=== PATIENT | male | born 1950 | race Caucasian/White ===

== ENCOUNTER 2016-11-08 18:55 | Emergency (ER) | payer OTHER ==
[2016-11-08 19:11] VITALS: BMI 30.9
--- NOTE | 2016-11-08 19:49 | PDOC ---
History of Present Illness - General History Source: Patient Exam Limitations: No Limitations - History of Present Illness Initial Comments: 11/08/16 21:13 The patient is a 66 year old male with past medical history of end stage renal cancer (on dialysis MW) who presents to the ED with complaints of elevated blood pressure since this morning. The patient states he did not record his blood pressure, however he felt lightheaded all day and also experienced two episodes of nausea and vomiting. In the ED, the patient states his symptoms have subsided but his pressure was recorded at 172/91. His last dialysis treatment was yesterday in which he reported was normal. He also notes that he was recently diagnosed with shingles in which he is being treated for. He denies any recent illness, fever, chills, diarrhea, cough, shortness of breath, chest pain, or urinary symptoms. <Tish Campos - Last Filed: 11/08/16 22:09> <Stanislav Stokes - Last Filed: 11/08/16 22:51> - General Chief Complaint: Blood Pressure Problem Stated Complaint: HIGH BP /VOMITING/DISORIENTED Past History <Tish Campos - Last Filed: 11/08/16 22:09> - Past Medical History Dialysis: Yes (M-W-F) Disorders: (dialysis) HTN: Yes - Immunization History Immunization Up to Date: Yes - Psycho/Social/Smoking Cessation Hx Suicidal Ideation: No Smoking History: Never smoked Hx Alcohol Use: No Drug/Substance Use Hx: No Substance Use Type: None <Stanislav Stokes - Last Filed: 11/08/16 22:51> - Past Medical History Allergies/Adverse Reactions: Allergies Allergy/AdvReac Type Severity Reaction Status Date / Time morphine Allergy Unknown Verified 11/08/16 19:11 Home Medications: Ambulatory Orders Abacavir Sulfate [Abacavir] 300 mg PO DAILY 11/08/16 Cinacalcet HCl [Sensipar -] 30 mg PO DAILY 11/08/16 Hydrochlorothiazide [Hctz -] 25 mg PO DAILY #30 tablet 11/08/16 Oxycodone HCl [Roxicodone -] 5 mg PO Q6H 11/08/16 Raltegravir [Isentress -] 400 mg PO BID 11/08/16 Valacyclovir HCl [Valtrex -] 1,000 mg PO TID 11/08/16 Zolpidem Tartrate [Ambien] 10 mg PO HS PRN 11/08/16 Review of Systems - Review of Systems Able to Perform ROS?: Yes Comments:: 11/08/16 21:14 GENERAL/CONSTITUTIONAL: No fever or chills. No weakness. HEAD, EYES, EARS, NOSE AND THROAT: No change in vision. No ear pain or discharge. No sore throat. CARDIOVASCULAR: No chest pain or shortness of breath. RESPIRATORY: No cough, wheezing, or hemoptysis. GASTROINTESTINAL: Present: nausea, vomiting No diarrhea or constipation. GENITOURINARY: No dysuria, frequency, or change in urination. MUSCULOSKELETAL: No joint or muscle swelling or pain. No neck or back pain. SKIN: No rash NEUROLOGIC: Present: dizziness No headache, loss of consciousness, or change in strength/sensation. ENDOCRINE: No increased thirst. No abnormal weight change. HEMATOLOGIC/LYMPHATIC: No anemia, easy bleeding, or history of blood clots. ALLERGIC/IMMUNOLOGIC: No hives or skin allergy. All Other Systems: Reviewed and Negative <Tish Campos - Last Filed: 11/08/16 22:09> *Physical Exam - Vital Signs Last Vital Signs Temp Pulse Resp BP Pulse Ox 98.2 F 94 H 20 172/91 98 11/08/16 19:09 11/08/16 19:09 11/08/16 19:09 11/08/16 19:09 11/08/16 19:09 - Physical Exam Comments: 11/08/16 21:15 GENERAL: Awake, alert, and fully oriented, in no acute distress, obese HEAD: No signs of trauma EYES: PERRLA, EOMI, sclera anicteric, conjunctiva clear ENT: Auricles normal inspection, hearing grossly normal, nares patent, oropharynx clear without exudates. Moist mucosa NECK: Normal ROM, supple, no lymphadenopathy, JVD, or masses LUNGS: Breath sounds equal, clear to auscultation bilaterally. No wheezes, and no crackles HEART: Systolic murmur with diffuse radiation. Normal S1 and S2, no murmurs, rubs or gallops ABDOMEN: Umbilical hernia that is reproducible on palpation. Soft, nontender, normoactive bowel sounds. No guarding, no rebound. EXTREMITIES: Fistula placed in left arm that is patent with palpable bruits. Normal range of motion, no edema. No clubbing or cyanosis. No cords, erythema, or tenderness NEUROLOGICAL: Cranial nerves II through XII grossly intact. Normal speech, normal gait SKIN: Warm, Dry, normal turgor, no rashes or lesions noted. <Tish Campos - Last Filed: 11/08/16 22:09> - Vital Signs Last Vital Signs Temp Pulse Resp BP Pulse Ox 98.2 F 94 H 20 172/91 98 11/08/16 19:09 11/08/16 19:09 11/08/16 19:09 11/08/16 19:09 11/08/16 19:09 <Stanislav Stokes - Last Filed: 11/08/16 22:51> Heart Score/ECG Review - ECG Intrepretation Comment:: 11/08/16 21:46 ECG obtained at 19:30 Normal sinus at 93 bpm. Q waves in V3 <Tish Campos - Last Filed: 11/08/16 22:09> ED Treatment Course - LABORATORY CBC & Chemistry Diagram: 11/08/16 21:07 11/08/16 21:07 - RADIOLOGY Radiology Studies Ordered: 11/08/16 22:[address] as reviewed by Dr. Bean FINDINGS:Serial transaxial images of the brain are available without intravenous contrast agent demonstrating generalized mild cortical atrophy. There is no midline shift or mass-effect or acute hemorrhage. No abnormal fluid collections are seen. The ventricular system is normal. Visible portions of the mastoid air cells are well-aerated. The calvarium appears intact. Visible portions of the paranasal sinuses are well-aerated. IMPRESSION: Findings of chronic parenchymal changes of the brain <Tish Campos - Last Filed: 11/08/16 22:09> - LABORATORY CBC & Chemistry Diagram: 11/08/16 21:07 11/08/16 21:07 <Stanislav Stokes - Last Filed: 11/08/16 22:51> Medical Decision Making - Medical Decision Making 11/08/16 21:57 This is a 66yo m with ESRD on HD with full session yesterday who presents with headache, n/v and significantly elevated BP. He has no chest pain, palpitations , SOB and no light headedness; he reports no other symptoms. He has h/o hyperlipidemia, hypertension and says his BP typically "goes down when (he) has dialysis. Will give antihypertensive as he is not taking any; will obtain CT head and cardiac ecvaluation; EKG is reassuring. He will likely be discharged pending any positive findings with instruction for close follow up. 11/08/16 22:14 All diagnostics are negative; he is having no current symptoms and CT head is negative; I have encouraged the patient to follow up with the PMD within the next 24 hours and return if there is any change in symptoms; as well, I have started him on HCTZ 25mg PO. 11/08/16 22:25 <Stanislav Stokes - Last Filed: 11/08/16 22:51> *DC/Admit/Observation/Transfer - Attestations Scribe Attestion: 11/08/16 21:43 Documentation prepared by Tish Campos, acting as director medical affairs for Stanislav Stokes MD. <Tish Campos - Last Filed: 11/08/16 22:09> - Discharge Dispostion Admit: No Decision to Admit order Date/Time: 11/08/16 22:00 - Attestations Physician Attestion: 11/08/16 22:14 I, Dr. Stanislav Stokes MD, attest that this document has been prepared under my direction and personally reviewed by me in its entirety. I further attest, that it accurately reflects all work, treatment, procedures and medical decision -making performed by me. <Stanislav Stokes - Last Filed: 11/08/16 22:51> Diagnosis at time of Disposition: End stage renal disease on dialysis Hypertension Qualifiers: Hypertension type: secondary to other renal disorders Qualified Code(s): I15.1 - Hypertension secondary to other renal disorders Headache Qualifiers: Headache type: other headache syndrome Qualified Code(s): G44.89 - Other headache syndrome Nausea & vomiting Qualifiers: Vomiting type: unspecified Vomiting Intractability: non-intractable Qualified Code(s): R11.2 - Nausea with vomiting, unspecified - Discharge Dispostion Disposition: HOME Condition at time of disposition: Good - Prescriptions Prescriptions: Hydrochlorothiazide [Hctz -] 25 mg PO DAILY #30 tablet - Patient Instructions Additional Instructions: As discussed, your Blood pressure should be monitored as much as possible with a home BP kit, which can be purchased at any pharmacy. If there is any change in your symptoms, or if you have any return of your headache, if you have any chest pain, please return immediately to the ED. Please follow up with your PMD within the next 48 hours otherwise.
[2016-11-08] MEDS ORDERED: LABETALOL HCL 200 MG TABLET (FP) PO ONE (20:54)
[2016-11-08] MEDS ORDERED: ASPIRIN 81 MG CHEWABLE TABLETS PO ONE (20:55)
[2016-11-08] MEDS ORDERED: ASPIRIN 81 MG CHEWABLE TABLETS ONE (21:05)
[2016-11-08] MEDS ORDERED: LABETALOL HCL 100 MG TABLET (FP) ONE (21:06)
[2016-11-08 21:15] LABS: BASOPHIL 0.9 % (0-2.0); EOSINOPHIL 4.8 % (0-4.5); MCH 30.1 pg (25.7-33.7); MCHC 33.2 g/dl (32.0-35.9); MEAN CELL VOLUME 90.6 fl (80-96); MEAN PLT VOLUME 7.2 fl (7.5-11.1); PLATELET COUNT 158 K/MM3 (134-434); RDW 14.3 % (11.9-15.9); WHITE BLOOD COUNT 6.7 K/mm3 (4.0-10.0)
[2016-11-08 21:25] LABS: INR 1.05 (0.82-1.09); PROTHROMBIN TIME (PATIENT) 11.6 SEC (9.98-11.88)
[2016-11-08 21:40] LABS: ALBUMIN 4.4 g/dl (3.4-5.0); BILIRUBIN,TOTAL 0.5 mg/dL (0.2-1.0); CALCIUM 9.5 mg/dL (8.5-10.1); MAGNESIUM 2.7 mg/dL (1.8-2.4); TOT PROT 7.7 g/dl (6.4-8.2)
[2016-11-08 21:46] LABS: TROPONIN I 0.02 ng/ml (0.00-0.05)
[2016-11-08 21:50] LABS: CREATININE 8.9 mg/dL (0.7-1.3)
[2016-11-08] MEDS ORDERED: ALPRAZolam 0.25 MG TABLET PO ONE (22:24)
[2016-11-08] MEDS ORDERED: ALPRAZolam 0.25 MG TABLET ONE (22:32)
[2016-11-08 22:39] VITALS: BP 143/89; PULSE 85; TEMP 98.1
--- NOTE | 2016-11-09 22:30 | EKG ---
Test Reason : Blood Pressure : / mmHG Vent. Rate : 093 BPM Atrial Rate : 093 BPM P-R Int : 206 ms QRS Dur : 100 ms QT Int : 384 ms P-R-T Axes : 023 -01 066 degrees QTc Int : 477 ms NORMAL SINUS RHYTHM MINIMAL VOLTAGE CRITERIA FOR LVH, MAY BE NORMAL VARIANT CANNOT RULE OUT INFERIOR INFARCT , AGE UNDETERMINED CANNOT RULE OUT ANTERIOR INFARCT , AGE UNDETERMINED ABNORMAL ECG WHEN COMPARED WITH ECG OF 02-JUN-2016 01:06, PREMATURE VENTRICULAR COMPLEXES ARE NO LONGER PRESENT MINIMAL CRITERIA FOR INFERIOR INFARCT ARE NOW PRESENT Confirmed by KRISTIE HORNER MD ([id number]) on 11/09/2016 10:30:22 PM Referred By: Confirmed By:KRISTIE HORNER MD
== END 2016-11-08 22:39 | disposition home or self-care (01) ==
LOC: JER 18:55
DX: I10 Essential (primary) hypertension (principal); I12.0 Hypertensive chronic kidney disease with stage 5 chronic kidney disease or end stage renal disease; N17.8 Other acute kidney failure; Z99.2 Dependence on renal dialysis
CPT/HCPCS: 36415; 70450-TC; 71010-TC; 80053; 82550; 83690; 83735; 83880; 84100; 84484; 85025; 85610; 86850; 86900; 86901; 93005; 93010; 99281-25

== ENCOUNTER 2016-11-09 22:05 | Emergency (ER) | payer OTHER ==
[2016-11-09 22:14] VITALS: TEMP 97.7; BMI 29.9
[2016-11-09] MEDS ORDERED: NITROGLYCERIN SUBLINGUAL 1/150 0.4 MG TAB SL ONE (22:35)
[2016-11-09] MEDS ORDERED: ONDANSETRON 4 MG/2 ML VIAL IVPUSH ONE (22:36)
--- NOTE | 2016-11-09 22:37 | PDOC ---
History of Present Illness - History of Present Illness Initial Comments: 11/09/16 22:44 Patient is a 66 year old male with significant medical hx of ESRD (on dialysis) and HTN who is presenting to the ED with intermittent confusion since today. Patient is accompanied by girlfriend who accompanied history. She states that today the patient has been having intermittent episodes of confusion where he didnt recognize her or his family. The patient reportedly had moments where he was not acting himself and speaking like a child. She also states that the patient was touching his head often but didn't declare a headache. Upon second interview, the girlfriend endorses that the patient "accidentally took half of a klonopin" of her's from several hours ago. Denies fever, chills, nausea, vomiting, head injury, LOC, or weakness. Patient was seen in the ED yesterday for elevated blood pressure, lightheadedness, nausea and vomiting. <Myrtle Bryson - Last Filed: 11/09/16 23:04> <Stanislav Stokes - Last Filed: 11/10/16 02:24> - General Chief Complaint: Altered Mental Status Stated Complaint: CONFUSED/POSS STROKE Past History <Myrtle Bryson - Last Filed: 11/09/16 23:04> - Past Medical History Dialysis: Yes (M-W-F) Disorders: (dialysis) HTN: Yes - Immunization History Immunization Up to Date: Yes - Psycho/Social/Smoking Cessation Hx Suicidal Ideation: No Smoking History: Current every day smoker Have you smoked in the past 12 months: No Number of Cigarettes Smoked Daily: 0 Information on smoking cessation initiated: No Hx Alcohol Use: No Drug/Substance Use Hx: No Substance Use Type: None <Stanislav Stokes - Last Filed: 11/10/16 02:24> - Past Medical History Allergies/Adverse Reactions: Allergies Allergy/AdvReac Type Severity Reaction Status Date / Time morphine Allergy Unknown Verified 11/09/16 22:10 Home Medications: Ambulatory Orders Abacavir Sulfate [Abacavir] 300 mg PO DAILY 11/08/16 Cinacalcet HCl [Sensipar -] 30 mg PO DAILY 11/08/16 Hydrochlorothiazide [Hctz -] 25 mg PO DAILY #30 tablet 11/08/16 Oxycodone HCl [Roxicodone -] 5 mg PO Q6H 11/08/16 Raltegravir [Isentress -] 400 mg PO BID 11/08/16 Valacyclovir HCl [Valtrex -] 1,000 mg PO TID 11/08/16 Zolpidem Tartrate [Ambien] 10 mg PO HS PRN 11/08/16 Review of Systems - Review of Systems Comments:: 11/09/16 22:47 GENERAL/CONSTITUTIONAL: No fever or chills. No weakness. HEAD, EYES, EARS, NOSE AND THROAT: No change in vision. No ear pain or discharge. No sore throat. CARDIOVASCULAR: No chest pain or shortness of breath. RESPIRATORY: No cough, wheezing, or hemoptysis. GASTROINTESTINAL: No nausea, vomiting, diarrhea or constipation. GENITOURINARY: No dysuria, frequency, or change in urination. MUSCULOSKELETAL: No joint or muscle swelling or pain. No neck or back pain. SKIN: No rash NEUROLOGIC: Confusion. No headache, vertigo, loss of consciousness, or change in strength/sensation. <Myrtle Bryson - Last Filed: 11/09/16 23:04> *Physical Exam - Vital Signs Last Vital Signs Temp Pulse Resp BP Pulse Ox 97.7 F 96 H 14 182/113 98 11/09/16 22:11 11/09/16 22:11 11/09/16 22:11 11/09/16 22:11 11/09/16 22:11 - Physical Exam Comments: 11/09/16 22:48 GENERAL: Patient is agitated. Awake, alert, and fully oriented. HEAD: No signs of trauma EYES: PERRLA, EOMI, sclera anicteric, conjunctiva clear ENT: Auricles normal inspection, hearing grossly normal, nares patent, oropharynx clear without exudates. Moist mucosa NECK: Normal ROM, supple, no lymphadenopathy, JVD, or masses LUNGS: Breath sounds equal, clear to auscultation bilaterally. No wheezes, and no crackles HEART: Regular rate and rhythm, normal S1 and S2, no murmurs, rubs or gallops ABDOMEN: Soft, nontender, normoactive bowel sounds. No guarding, no rebound. No masses EXTREMITIES: Normal range of motion, no edema. No clubbing or cyanosis. No cords, erythema, or tenderness NEUROLOGICAL: Speaking full sentences, not confused. Answering questions appropriately. Cranial nerves II through XII grossly intact. Normal speech, normal gait SKIN: Warm, Dry, normal turgor, no rashes or lesions noted. ENDOCRINE: No increased thirst. No abnormal weight change. HEMATOLOGIC/LYMPHATIC: No anemia, easy bleeding, or history of blood clots. ALLERGIC/IMMUNOLOGIC: No hives or skin allergy. <Myrtle Bryson - Last Filed: 11/09/16 23:04> - Vital Signs Last Vital Signs Temp Pulse Resp BP Pulse Ox 97.7 F 96 H 14 182/113 98 11/09/16 22:11 11/09/16 22:11 11/09/16 22:11 11/09/16 22:11 11/09/16 22:11 <Stanislav Stokes - Last Filed: 11/10/16 02:24> ED Treatment Course - LABORATORY CBC & Chemistry Diagram: 11/09/16 22:55 11/09/16 22:55 - RADIOLOGY Radiograph Interpretation: 11/09/16 23:04 Pond Scaler: ([email or web address]) Report Date: 11/09/2016 23:03:00 Report Status: Preliminary Begin of Report Content Referring Physician: Patient Name: Kody Vasquez THIS IS A PRELIMINARY REPORT FROM [facility] EXAM: CT brain without contrast IMAGES: 76 EXAM DATE AND TIME: 2016-11-09 22:41:31.0 REASON FOR EXAM: Confused COMPARISON: CT brain November 08, 2016 FINDINGS: Involutional changes. No hemorrhage. No mass. No visible acute infarct. Osseous structures are intact. THIS DOCUMENT HAS BEEN ELECTRONICALLY SIGNED Bismark Celaya MD 11/09/2016 23:02 AMITA George Please call [facility] [phone] ([phone]) with questions. End of Report Content - Medications Given in the ED: ED Medications Discontinued Medications Generic Name Dose Route Start Last Admin Trade Name Freq PRN Reason Stop Dose Admin Nitroglycerin 0.4 mg 11/09/16 22:35 11/09/16 22:39 Nitrostat - SL 11/09/16 22:36 0.4 mg ONCE ONE Administration <Myrtle Bryson - Last Filed: 11/09/16 23:04> - LABORATORY CBC & Chemistry Diagram: 11/09/16 22:55 11/09/16 22:55 <[place] - Last Filed: 11/10/16 02:24> Medical Decision Making - Medical Decision Making 11/10/16 01:01 This is a 66yo m with ESRD on HD who presents for the second time within 24 hours and today, the girlfriend reports continued hypertension through the day and intermittent confusion which prompted her to call 911 this evening. The patient is sensical and answers questions appropriately without any evidence of focal neurologic deficits. He is given nitro SL for BP concern which has helped bring the BP down to reasonable level. He denies any chest pain but did have one episode of nausea without vomiting. His PE demonstrates only mild diffuse tremulousness and weakness. EKG is reassuring and without ischemia; no significant change from the previous yesterday. He was asymptomatic with BP controlled yesterday and was able to be discharged safely. He did not take the HCTZ which was prescribed and in fact "accidentally" took the girlfriend's 1mg PO klonazepam, which is likely contributing to his mild intermittent confusion/ grogginess. 11/10/16 01:06 His labs show only creatinine consistent with his ESRD/HD history and elevated BNP; his chest exam is unremarkable and he has no difficulty breathing. His CT head is negative as well. He will be endorsed to the hospitalist after UA is obtained; will endorse for telemetry admission for intermittent confusion and blood pressure monitoring; he also has never been given antihypertensives and should be evaluated for this. 11/10/16 01:59 The patient's girlfriend and I, as well as the nursing staff, have all tried to make the patient. He is answering questions appropriately, shows no focal neurologic deficits. He seems to not be concerned regarding the significant elevation of the blood pressure, and says he is not confused. Objectively, there is no suggestion of confusion. He is given information regarding treatment options, alternatives, and I have answered all questions of the patient and his girlfriend. He insists he will sign AMA at this time and will have follow up with dialysis tomorrow and will call 911 if there are any changes in his symptoms. I have strongly encouraged the patient to return if he reconsiders <Stanislav Stokes - Last Filed: 11/10/16 02:24> *DC/Admit/Observation/Transfer - Attestations Scribe Attestion: 11/09/16 22:49 Documentation prepared by Myrtle Bryson, acting as bilingual medical receptionist for Stanislav Stokes MD. <Myrtle Bryson - Last Filed: 11/09/16 23:04> - Discharge Dispostion Decision to Admit order Date/Time: 11/10/16 02:22 - Attestations Physician Attestion: 11/10/16 02:22 I, Dr. Stanislav Stokes MD, attest that this document has been prepared under my direction and personally reviewed by me in its entirety. I further attest, that it accurately reflects all work, treatment, procedures and medical decision -making performed by me. <Stanislav Stokes - Last Filed: 11/10/16 02:24> Diagnosis at time of Disposition: Confusion Hypertension Qualifiers: Hypertension type: unspecified secondary hypertension Qualified Code(s): I15.9 - Secondary hypertension, unspecified; I15 - Secondary hypertension - Discharge Dispostion Disposition: AGAINST MEDICAL ADVICE Condition at time of disposition: Guarded - Patient Instructions Additional Instructions: Please follow up with your PMD within the next 12 hours and if there is any change otherwise in your symptoms, please return immediately to the ED. You are signing out of the hospital against medical advice and if you reconsider your decision, please return immediately.
[2016-11-09] MEDS ORDERED: NICARDIPINE 25 MG in DEXTROSE 5%-WATER - 240 ML IVPB SCH (22:45)
[2016-11-09] MEDS ORDERED: ONDANSETRON 4 MG/2 ML VIAL ONE (23:03)
[2016-11-09 23:04] LABS: BASOPHIL 1.4 % (0-2.0); EOSINOPHIL 7.4 % (0-4.5); MCH 30.4 pg (25.7-33.7); MEAN CELL VOLUME 89.6 fl (80-96); MEAN PLT VOLUME 6.9 fl (7.5-11.1); NEUTROPHILS 65.9 % (42.8-82.8); PLATELET COUNT 161 K/MM3 (134-434); RDW 14.4 % (11.9-15.9); WHITE BLOOD COUNT 6.3 K/mm3 (4.0-10.0)
[2016-11-09 23:15] LABS: INR 1.06 (0.82-1.09); PROTHROMBIN TIME (PATIENT) 11.7 SEC (9.98-11.88)
[2016-11-09 23:37] LABS: ALBUMIN 4.4 g/dl (3.4-5.0); BILIRUBIN,TOTAL 0.6 mg/dL (0.2-1.0); CALCIUM 8.6 mg/dL (8.5-10.1); MAGNESIUM 2.7 mg/dL (1.8-2.4); PHOSPHOROUS 6.2 mg/dL (2.5-4.9); TOT PROT 7.5 g/dl (6.4-8.2)
[2016-11-09 23:43] LABS: TROPONIN I 0.02 ng/ml (0.00-0.05)
[2016-11-09 23:46] LABS: CREATININE 10.6 mg/dL (0.7-1.3)
[2016-11-10 00:31] LABS: CHOLESTEROL 169 mg/dL (50-200); LDL CHOLESTEROL (ONLY SJRH) 97 mg/dL (5-100)
[2016-11-10 02:18] VITALS: BP 141/79; PULSE 73
--- NOTE | 2016-11-10 12:37 | EKG ---
Test Reason : Blood Pressure : / mmHG Vent. Rate : 092 BPM Atrial Rate : 092 BPM P-R Int : 206 ms QRS Dur : 086 ms QT Int : 398 ms P-R-T Axes : 043 015 073 degrees QTc Int : 492 ms NORMAL SINUS RHYTHM CANNOT RULE OUT ANTERIOR INFARCT (CITED ON OR BEFORE 08-NOV-2016) ABNORMAL ECG WHEN COMPARED WITH ECG OF 08-NOV-2016 19:30, NO SIGNIFICANT CHANGE WAS FOUND Confirmed by LAINE FERNANDEZ, MICHAEL ([id number]) on 11/10/2016 12:36:47 PM Referred By: Confirmed By:MICHAEL JANG MD
== END 2016-11-10 02:30 | disposition left against medical advice (07) ==
LOC: JER 22:05
PROC: 3E033GC Introduction of Other Therapeutic Substance into Peripheral Vein, Percutaneous Approach (ICD-10-PCS; principal; 2016-11-09)
DX: R41.0 Disorientation, unspecified (principal); I12.0 Hypertensive chronic kidney disease with stage 5 chronic kidney disease or end stage renal disease; N18.6 End stage renal disease; N17.8 Other acute kidney failure; Z99.2 Dependence on renal dialysis
CPT/HCPCS: 36415; 70450-TC; 71010-TC; 80053; 80061; 82550; 83605; 83690; 83721; 83735; 83880; 84100; 84484; 85025; 85610; 86850; 86900; 86901; 87040; 93005; 93010; 99282-25

== ENCOUNTER 2019-07-04 07:01 | Day surgery (SDC) | payer OTHER ==
[2019-07-01 16:17] VITALS: BMI 25.1
[2019-07-04] MEDS ORDERED: HEPARIN NA (PORCINE) 5,000 UNITS/ML 1ML VIAL ONE ×2 (07:15→07:26)
[2019-07-04] MEDS ORDERED: LIDOCAINE HCL 1%, 10 MG/ML (20ML VIAL) ONE ×2 (07:15→09:12)
[2019-07-04] MEDS ORDERED: POVIDONE-IODINE OINTMENT 10% - 28.4 GM TUBE ONE (07:15)
--- NOTE | 2019-07-04 08:00 | HP ---
History & Physical Update - History History: No Change - Physical Physical: No Change - Assessment Assessment: No Change - Plan Plan: No Change
[2019-07-04] MEDS ORDERED: PROPOFOL 20 ML ONE ×4 (08:47→09:01)
[2019-07-04] MEDS ORDERED: MIDAZOLAM HCL 2 MG/2 ML SINGLE DOSE VIAL ONE (08:47)
[2019-07-04] MEDS ORDERED: ceFAZolin 2 GRAM PREMIX BAG IVPB ONE (09:05)
[2019-07-04] MEDS ORDERED: LIDOCAINE HCL 1%, 10 MG/ML (50 mL VIAL) NR ONE ×2 (09:10)
--- NOTE | 2019-07-04 10:37 | OP ---
Operative Note - Note: Operative Date: 07/04/19 Pre-Operative Diagnosis: ESRD on HD Operation: Placement AV graft right arm Findings: Small axillary vein Implants: 4-7 mm Propaten graft Post-Operative Diagnosis: Same as Pre-op Surgeon: Roddy Stanley Design Engineer Marine Equipment: Niharika Gay Anesthesiologist/FOREIGN STUDENT ADVISER: Derrick Giang Estimated Blood Loss (mls): 50
[2019-07-04] MEDS ORDERED: oxyCODONE HCL 5 MG TABLET PO PRN (11:02)
--- NOTE | 2019-07-04 11:02 | SURG ---
Surgery Python Web Developer Note Python Web Developer: Niharika Gay PA-C Date of Service: 07/04/19 Diagnosis: ESRD on HD Procedure: Placement AV graft right arm I was present for the entirety of the operative procedure. For further detail, please refer to operative report. Visit type - Case Type Case Type: Scheduled - Emergency Emergency Visit: No - New patient This patient is new to me today: Yes Date on this admission: 07/04/19
[2019-07-04] MEDS ORDERED: SODIUM CHLORIDE 1,000 ML IV SCH (11:15)
[2019-07-04 13:19] VITALS: BP 130/68; PULSE 70; TEMP 97.8
--- NOTE | 2019-07-08 10:56 | OP ---
DATE OF OPERATION: 07/04/2019 SURGEON: Roddy Hays MD ASSOCIATE TRAINER: LANNY Garrido PROCEDURE: Placement arteriovenous graft, right arm. PREOPERATIVE DIAGNOSIS: Renal failure. POSTOPERATIVE DIAGNOSIS: Renal failure. ANESTHESIA: Fractional. ANESTHESIOLOGIST: Derrick Giang MD OPERATIVE FINDINGS: The brachial artery was normal diameter with good flow. The axillary vein was small diameter of approximately 5 mm. OPERATIVE PROCEDURE: Following routine patient identification with site and side verification, intravenous sedation was established. The right arm, axilla, and chest wall were prepped with ChloraPrep. Time-out was performed, 1% lidocaine was infiltrated in the right axilla over the axillary vein, which had been mapped preoperatively with duplex imaging. The vein was exposed through a longitudinal incision using cautery for hemostasis. The vein was encircled with Vessel Loops. Side branches were ligated and divided. Lidocaine was infiltrated over the brachial pulse proximal to the antecubital crease and a skin incision made over the artery. The artery was exposed using cautery for hemostasis. It was secured with Vessel Loops. Side branches were ligated and divided. A curved metal tunneler was then passed over the anterior aspect of the arm between the 2 incisions. A 4/7-mm Propaten vascular graft was passed through the tunneler with the small end distally. The artery was occluded with Vessel Loops and opened on exposed surface with a 6-mm arteriotomy. The small end of the graft was beveled and anastomosed to the side of the artery with running suture of 6-0 Prolene. Prior to completion of the suture line, the artery was allowed to back bleed and flush. Suture line was completed, and the graft was occluded with a vascular clamp. Flow was restarted to the brachial artery. Bleeding from suture line was controlled with Surgicel. The vein was then occluded proximally with a small Bulldog clamp and distally with Vessel Loop. A longitudinal venotomy measuring approximately 15 mm was made. The vein was flushed with heparin solution. The graft was beveled and anastomosed to the side of the vein with running suture of 6-0 Prolene. Prior to completed of the suture line, the vein was allowed to back bleed and was flushed with heparin, and the graft was allowed to flush. Suture line was completed. All clamps were removed. There was good flow through the graft with a palpable pulse present. When hemostasis was adequate, the wounds were closed with interrupted suture of 3-0 Vicryl in subcutaneous tissues and skin elizabeth. Sterile dressings were applied, and the patient was taken to the recovery room in stable condition. RODDY HAYS M.D. [id number]
== END 2019-07-04 12:30 | disposition home or self-care (01) ==
LOC: JASU-SURG 07:01
PROVIDERS: ATTEND Surgery
PROC: 03170JD Bypass Right Brachial Artery to Upper Arm Vein with Synthetic Substitute, Open Approach (ICD-10-PCS; principal; 2019-07-04 08:00)
DX: I12.0 Hypertensive chronic kidney disease with stage 5 chronic kidney disease or end stage renal disease (principal); N18.6 End stage renal disease; Z99.2 Dependence on renal dialysis; D64.9 Anemia, unspecified; J45.909 Unspecified asthma, uncomplicated; Z21 Asymptomatic human immunodeficiency virus [HIV] infection status; M17.0 Bilateral primary osteoarthritis of knee
CPT/HCPCS: 36415; 84132; 94760; J1644

== ENCOUNTER 2020-04-20 15:03 | Emergency (ER) | payer OTHER ==
[2020-04-20 15:12] VITALS: BP 110/59; PULSE 107; TEMP 98.2; BMI 26.6
--- NOTE | 2020-04-20 15:25 | PDOC ---
History of Present Illness - General Chief Complaint: Injury Stated Complaint: FALL Time Seen by Provider: 04/20/20 15:20 History Source: Patient, Significant Other Exam Limitations: No Limitations - History of Present Illness Initial Comments: 04/20/20 15:53 70M with PMH of ESRD on HD, CAD x3 stents, on warfarin and plavix presents to the ED after a fall today. The fall was unwitnessed, and reported to be mechanical. He was using exercise bands, which broke, leading to him to fall and hit his head. He also had a right 5th toe laceration that was cut on the wood floor. He reported a scalp hematoma. Denied syncope, LOC, lightheadedness/dizziness, headache, vision changes, numbness/tingling, weakness, chest pain, or SOB. PMH: as in HPI SH: see below Meds: see med list Allergies: valacyclovir, morphine PCP: Dr. William JOHNS GENERAL/CONSTITUTIONAL: No fever or chills. No weakness. HEENT: No change in vision. No ear pain or discharge. No sore throat. CARDIOVASCULAR: No chest pain or shortness of breath RESPIRATORY: No cough, wheezing, or hemoptysis. GASTROINTESTINAL: No nausea, vomiting, diarrhea or constipation. GENITOURINARY: No dysuria, frequency, or change in urination. MUSCULOSKELETAL: No joint or muscle swelling or pain. No neck or back pain. SKIN: No rash NEUROLOGIC: No headache, vertigo, loss of consciousness, or change in strength/sensation. ENDOCRINE: No increased thirst. No abnormal weight change HEMATOLOGIC/LYMPHATIC: No anemia, easy bleeding, or history of blood clots. ALLERGIC/IMMUNOLOGIC: No hives or skin allergy. PE GENERAL: Awake, alert, and fully oriented; no acute distress HEAD: + occipital scalp hematoma (approx. 3-4cm diameter) EYES: PERRLA, EOMI, sclera anicteric, conjunctiva clear ENT: Auricles normal inspection, hearing grossly normal, nares patent, moist mucosa, oropharynx clear without exudates. NECK: Normal ROM, supple, no LAD, JVD, or masses HEART: Regular rate and rhythm, normal S1/S2, no murmurs, rubs or gallops, per ipheral pulses normal and equal bilaterally. LUNGS: No distress, speaks full sentences, clear to auscultation bilaterally ABDOMEN: Soft, nontender. No guarding, no rebound. No masses EXTREMITIES: Normal inspection, Normal range of motion, no edema. No clubbing or cyanosis. NEUROLOGICAL: CNII-XII grossly intact. Normal speech, no focal sensorimotor deficits SKIN: Warm, Dry, normal turgor, no rashes or lesions noted Assessment and Plan 1. eval for intracranial hemorrhage 2. tetanus shot and clean wound Leoncio Franks, PGY1 Emergency Medicine Past History - Medical History Allergies/Adverse Reactions: Allergies Allergy/AdvReac Type Severity Reaction Status Date / Time valacyclovir Allergy Severe Rash Verified 04/20/20 15:05 morphine Allergy Unknown Verified 04/20/20 15:05 Home Medications: Ambulatory Orders Cinacalcet HCl [Sensipar -] 60 mg PO HS 11/08/16 Raltegravir [Isentress] 400 mg PO BID 11/08/16 oxyCODONE HCL [Roxicodone -] 5 mg PO Q8H 11/08/16 Aspirin [Ecotrin] 81 mg PO DAILY 07/01/19 Clopidogrel Bisulfate [Plavix] 75 mg PO DAILY 07/01/19 Lamivudine [Epivir Hbv] 25 mg PO DAILY 07/01/19 Sevelamer Carbonate [Renvela -] 800 mg PO CM 07/01/19 Atorvastatin Ca [Lipitor] 40 mg PO HS 04/20/20 Cholecalciferol (Vitamin D3) [Vitamin D3 -] 5,000 unit PO DAILY 04/20/20 Anemia: No Asthma: Yes Cardiac Disorders: Yes (CARDIAC STENTS 06/2018) CVA: No COPD: No Dementia: No Diabetes: No Dialysis: Yes (-W-) GI Disorders: No Disorders: Yes (DIALYSIS ,,THU) HTN: No Hypercholesterolemia: Yes Liver Disease: No Seizures: No Thyroid Disease: No - Surgical History Abdominal Surgery: No Appendectomy: No Cardiac Surgery: No Cholecystectomy: No Lung Surgery: No Neurologic Surgery: No Orthopedic Surgery: No - Immunization History Immunization Up to Date: Yes - Psycho-Social/Smoking History Smoking History: Never smoked Have you smoked in the past 12 months: No Number of Cigarettes Smoked Daily: 0 - Substance Abuse Hx (Audit-C & DAST Scrn) How often the patient has a drink containing alcohol: Never Score: In Men: 4 or > Positive; In Women: 3 or > Positive: 0 Screen Result (Pos requires Nsg. Audit-10AR): Negative In the last yr the pt used illegal drug/Rx for NonMed reason: No Score: Yes response is considered Positive: 0 Screen Result (Positive result requires Nsg. DAST-10): Negative *Physical Exam - Vital Signs Last Vital Signs Temp Pulse Resp BP Pulse Ox 98.2 F 107 H 20 110/59 L 100 04/20/20 15:05 04/20/20 15:05 04/20/20 15:05 04/20/20 15:05 04/20/20 15:05 Procedures - Laceration/Wound Repair Left Lateral Toe 5th digit Wound Length: to 2.5 cm Wound Explored: clean Wound's Depth, Shape: superficial, irregular Irrigated w/ Saline: Yes Betadine Prep: No Wound Debrided: minimal Number of Sutures: 0 Sterile Dressing Applied: Yes Splint Applied: No Sling Applied: No Progress: 04/20/20 18:45 - Right 5th toe superficial laceration irrigated with sterile saline. No sutures were required. Applied bacitracin and wrapped in guaze. ED Treatment Course - LABORATORY CBC & Chemistry Diagram: 04/20/20 17:14 04/20/20 17:14 Medical Decision Making - Medical Decision Making 70M with PMH of ESRD on HD, CAD x3 stents, on warfarin and plavix presents to the ED after a unwitnessed mechanical fall led to head injury and right 5th toe laceration. 04/20/20 17:30 - CT c-spine: no fracture - Head CT: negative CBC WBC 4.2 K/mm3 (4.0-10.0) 04/20/20 17:14 RBC 3.28 M/mm3 (4.00-5.60) L 04/20/20 17:14 Hgb 10.0 GM/dL (11.7-16.9) L 04/20/20 17:14 Hct 30.4 % (35.4-49) L 04/20/20 17:14 MCV 92.9 fl (80-96) 04/20/20 17:14 MCH 30.7 pg (25.7-33.7) 04/20/20 17:14 MCHC 33.0 g/dl (32.0-35.9) 04/20/20 17:14 RDW 16.8 % (11.9-15.9) H 04/20/20 17:14 Plt Count 138 K/MM3 (134-434) 04/20/20 17:14 MPV 7.5 fl (7.5-11.1) 04/20/20 17:14 Absolute Neuts (auto) 3.0 K/mm3 (1.5-8.0) 04/20/20 17:14 Neutrophils % 71.1 % (42.8-82.8) 04/20/20 17:14 Lymphocytes % 13.2 % (8-40) D 04/20/20 17:14 Monocytes % 9.5 % (3.8-10.2) 04/20/20 17:14 Eosinophils % 5.1 % (0-4.5) H 04/20/20 17:14 Basophils % 1.1 % (0-2.0) 04/20/20 17:14 Nucleated RBC % 0 % (0-0) 04/20/20 17:14 CMP Sodium 135 mmol/L (136-145) L 04/20/20 17:14 Potassium 4.0 mmol/L (3.5-5.1) 04/20/20 17:14 Chloride 98 mmol/L (98-107) 04/20/20 17:14 Carbon Dioxide 28 mmol/L (21-32) 04/20/20 17:14 Anion Gap 9 MMOL/L (8-16) 04/20/20 17:14 BUN 29.7 mg/dL (7-18) H 04/20/20 17:14 Creatinine 3.5 mg/dL (0.55-1.3) H 04/20/20 17:14 Est GFR (CKD-EPI)AfAm 19.21 04/20/20 17:14 Est GFR (CKD-EPI)NonAf 16.58 04/20/20 17:14 Random Glucose 70 mg/dL (74-106) L 04/20/20 17:14 Calcium 7.9 mg/dL (8.5-10.1) L 04/20/20 17:14 Total Bilirubin 0.7 mg/dL (0.2-1) 04/20/20 17:14 AST 32 U/L (15-37) 04/20/20 17:14 ALT 26 U/L (13-61) 04/20/20 17:14 Alkaline Phosphatase 367 U/L (45-117) H 04/20/20 17:14 Total Protein 7.8 g/dl (6.4-8.2) 04/20/20 17:14 Albumin 3.6 g/dl (3.4-5.0) 04/20/20 17:14 INR, PTT INR 1.21 (0.83-1.09) H 04/20/20 17:14 - BUN, creatinine, and Hgb consistent with previous labs - INR subtherapeutic - right 5th toe was irrigated, dressed in bacitracin, and wrapped in bandage. - Pt stable for discharge Discharge - Discharge Information Problems reviewed: Yes Clinical Impression/Diagnosis: Head injury Qualifiers: Encounter type: initial encounter Qualified Code(s): S09.90XA - Unspecified injury of head, initial encounter Condition: Stable Disposition: HOME - Admission No - Follow up/Referral Referrals: Olesya Thomas MD [Primary Care Provider] - - Patient Discharge Instructions Patient Printed Discharge Instructions: DI for Laceration Repair, DI for Closed Head Injury Additional Instructions: You were seen in the ED for complaints of head injury and right toe wound. In the ED you were evaluated with head and neck CT scan, which were normal. There does not appear to be an acute need for immediate hospitalization. You are advised to follow up with your Primary Care Physician within 1 week. Return to the ED immediately if you experience dizziness/lightheadedness, passing out, or headache. - Post Discharge Activity
[2020-04-20] MEDS ORDERED: DIPHTH,PERTUSS(ACELL),TET 0.5 ML DISP.SYRIN IM ONE ×2 (15:51→16:04)
[2020-04-20] MEDS ORDERED: BACITRACIN/POLYMYXIN B SULFATE 15 GM TUBE TP SCH (16:45)
[2020-04-20] MEDS ORDERED: BACITRACIN 0.9 GM PACKET ONE (16:55)
--- NOTE | 2020-04-20 17:02 | PDOC ---
Attending Attestation - Resident Resident Name: Franks,Leoncio - ED Attending Attestation I have performed the following: I have examined & evaluated the patient, The case was reviewed & discussed with the resident, I agree w/resident's findings & plan, Exceptions are as noted - HPI HPI: 04/20/20 17:02 70y M hx of ESRD on HD, CAD x 3 stents, on coumadin and plavix presents to the ED after a head injury. Pt was working out with a resistance band and the band gave way, making him fall and sustaining a wound on his R pinky toe. Pt denies any LOC, notes he was in his US[employer] utntil he fell. Pt denies any cp, sob, n/v, vision changes, palitations, lightheadendes,s focal numbness/tingling/weakness, neck pain. Exam: General; no acute distress, well appaering HEENT: EOMI, +occipital hematoma, no crepitus NECK: NO focal bony tenderness on cervical/troacic/lumbar spine. Card: rrr, no mrg PULM: Cta b/l Abd: soft nontender LE: +skin avulsion on R pinky toe plan: 70y M hx of esrd, cad on coumadin presents with complaint of mechanical fall and head injury ct head to r/o bleed skin avulsion - will apply bacitrcin, non suturable, rodney ldebride skin tylenol for pain - Physicial Exam PE: 04/21/20 17:42 see above - Medical Decision Making 04/20/20 18:34 ct head negative labs reviewed pt feeling better will dcd with PMD fu return precautions were dsicussed Discharge - Discharge Information Problems reviewed: Yes Clinical Impression/Diagnosis: Head injury Qualifiers: Encounter type: initial encounter Qualified Code(s): S09.90XA - Unspecified injury of head, initial encounter Condition: Stable Disposition: HOME - Follow up/Referral Referrals: Olesya Thomas MD [Primary Care Provider] - - Patient Discharge Instructions Patient Printed Discharge Instructions: DI for Laceration Repair, DI for Closed Head Injury Additional Instructions: You were seen in the ED for complaints of head injury and right toe wound. In the ED you were evaluated with head and neck CT scan, which were normal. There does not appear to be an acute need for immediate hospitalization. You are advised to follow up with your Primary Care Physician within 1 week. Return to the ED immediately if you experience dizziness/lightheadedness, passing out, or headache. - Post Discharge Activity
[2020-04-20 18:01] LABS: BASO % 1.1 % (0-2.0); EOS % 5.1 % (0-4.5); HEMATOCRIT 30.4 % (35.4-49); LYMPH % 13.2 % (8-40); MCH 30.7 pg (25.7-33.7); MEAN CELL VOLUME 92.9 fl (80-96); MEAN PLT VOLUME 7.5 fl (7.5-11.1); MONO % 9.5 % (3.8-10.2); NEUT % 71.1 % (42.8-82.8); PLATELET COUNT 138 K/MM3 (134-434); RBC 3.28 M/mm3 (4.00-5.60); RDW 16.8 % (11.9-15.9); WHITE BLOOD COUNT 4.2 K/mm3 (4.0-10.0)
[2020-04-20 18:13] LABS: INR 1.21 (0.83-1.09); PROTHROMBIN TIME (PATIENT) 14.3 SEC (9.7-13.0)
[2020-04-20 18:15] LABS: ACTIVATED PTT 32.9 SECONDS (25.2-36.5)
[2020-04-20 18:19] LABS: ALBUMIN 3.6 g/dl (3.4-5.0); BILIRUBIN,TOTAL 0.7 mg/dL (0.2-1); BLOOD UREA NITROGEN 29.7 mg/dL (7-18); CALCIUM 7.9 mg/dL (8.5-10.1); CREATININE 3.5 mg/dL (0.55-1.3); TOT PROT 7.8 g/dl (6.4-8.2)
--- NOTE | 2020-04-21 14:58 | EKG ---
Test Reason : Blood Pressure : / mmHG Vent. Rate : 082 BPM Atrial Rate : 082 BPM P-R Int : 244 ms QRS Dur : 090 ms QT Int : 414 ms P-R-T Axes : 075 003 044 degrees QTc Int : 483 ms SINUS RHYTHM WITH MARKED SINUS ARRHYTHMIA WITH 1ST DEGREE A-V BLOCK POSSIBLE INFERIOR INFARCT , AGE UNDETERMINED CANNOT RULE OUT ANTERIOR INFARCT (CITED ON OR BEFORE 08-NOV-2016) ABNORMAL ECG WHEN COMPARED WITH ECG OF 09-NOV-2016 23:04, [place] INTERVAL HAS INCREASED T WAVE AMPLITUDE HAS DECREASED IN LATERAL LEADS Confirmed by Singh Pelayo ([id number]) on 04/21/2020 2:58:12 PM Referred By: Confirmed By:Singh Pelayo
== END 2020-04-20 18:35 | disposition home or self-care (01) ==
LOC: JER 15:03
PROC: 3E0234Z Introduction of Serum, Toxoid and Vaccine into Muscle, Percutaneous Approach (ICD-10-PCS; principal; 2020-04-20)
DX: S09.90XA Unspecified injury of head, initial encounter (principal); S91.115A Laceration without foreign body of left lesser toe(s) without damage to nail, initial encounter
CPT/HCPCS: 36415; 70450-TC; 72125-TC; 80053; 85025; 85610; 85730; 90715; 93005; 93010; 99285-25

== ENCOUNTER 2020-07-24 15:31 | Inpatient (IN) | payer OTHER ==
[2020-07-24] MEDS ORDERED: oxyCODONE HCL 10 MG SUSTAINED ACTING TABLET PO ONE ×2 (17:05→21:55)
[2020-07-24] MEDS ORDERED: ACYCLOVIR 400 MG TABLET PO ONE (17:16)
[2020-07-24] MEDS ORDERED: oxyCODONE HCL 10 MG SUSTAINED ACTING TABLET ONE ×2 (17:22→22:06)
[2020-07-24] MEDS ORDERED: ACYCLOVIR 200 MG CAPSULE ONE (17:22)
[2020-07-24 17:29] LABS: BASO % 0.8 % (0-2.0); EOS % 0.1 % (0-4.5); HEMATOCRIT 33.8 % (35.4-49); LYMPH % 7.2 % (8-40); MCH 30.9 pg (25.7-33.7); MCHC 32.5 g/dl (32.0-35.9); MEAN CELL VOLUME 95.2 fl (80-96); MEAN PLT VOLUME 7.7 fl (7.5-11.1); MONO % 9.3 % (3.8-10.2); NEUT % 82.6 % (42.8-82.8); PLATELET COUNT 106 K/MM3 (134-434); RBC 3.55 M/mm3 (4.00-5.60); RDW 17.6 % (11.9-15.9); WHITE BLOOD COUNT 8.9 K/mm3 (4.0-10.0)
[2020-07-24 17:55] LABS: ALBUMIN 3.2 g/dl (3.4-5.0); BLOOD UREA NITROGEN 30.6 mg/dL (7-18); CALCIUM 7.7 mg/dL (8.5-10.1)
[2020-07-24 18:00] LABS: CREATININE 5.5 mg/dL (0.55-1.3)
[2020-07-24 18:01] LABS: BILIRUBIN,TOTAL 1.4 mg/dL (0.2-1); TOT PROT 7.6 g/dl (6.4-8.2)
[2020-07-24] MEDS ORDERED: ACETAMINOPHEN 1000 MG/100 ML BAG IVPB ONE (18:44)
[2020-07-24] MEDS ORDERED: ACETAMINOPHEN INJECTION 100 ML IVPB ONE (18:56)
[2020-07-24 19:31] LABS: INR 1.43 (0.83-1.09); PROTHROMBIN TIME (PATIENT) 17.1 SEC (9.7-13.0)
[2020-07-24 19:37] LABS: ACTIVATED PTT 38.6 SECONDS (25.2-36.5)
[2020-07-24 20:39] LABS: BF WBC & OTHER NUCLEATED CELLS 10160 /mm3
[2020-07-24] MEDS ORDERED: ATORVASTATIN CA 80 MG TABLET (FP) PO ONE (22:46)
[2020-07-24] MEDS ORDERED: ATORVASTATIN CA 80 MG TABLET (FP) ONE (22:48)
[2020-07-25 01:30] LABS: N-TERMINAL BNP 171334.6 pg/ml (5-125)
[2020-07-25] MEDS ORDERED: WARFARIN NA 5 MG TABLET PO ONE (01:58)
[2020-07-25] MEDS ORDERED: COLCHICINE 0.6 MG CAP ONE ×2 (02:28→08:14)
[2020-07-25] MEDS ORDERED: WARFARIN NA 5 MG TABLET ONE (02:29)
[2020-07-25] MEDS: COLCHICINE 0.6 MG CAP PO SCH ×2 (02:31→09:41)
[2020-07-25] MEDS ORDERED: oxyCODONE HCL 5 MG TABLET ONE ×3 (04:15→15:54)
[2020-07-25] MEDS: oxyCODONE HCL 5 MG TABLET PO PRN ×3 (04:50→16:38)
[2020-07-25] MEDS ORDERED: ASPIRIN 81 MG CHEWABLE TABLETS ONE (08:14)
[2020-07-25] MEDS ORDERED: CLOPIDOGREL BISULFATE 75 MG TABLET (FP) ONE (08:14)
[2020-07-25] MEDS ORDERED: DOCUSATE SODIUM 100 MG CAPSULE (FP) PO ONE (08:14)
[2020-07-25 08:16] LABS: URIC ACID 4.5 mg/dL (2.6-7.2)
[2020-07-25 08:22] LABS: HEMATOCRIT 33.7 % (35.4-49); HEMOGLOBIN 10.6 GM/dL (11.7-16.9); MCH 29.8 pg (25.7-33.7); MCHC 31.4 g/dl (32.0-35.9); MEAN PLT VOLUME 8.2 fl (7.5-11.1); PLATELET COUNT 121 K/MM3 (134-434); RBC 3.54 M/mm3 (4.00-5.60); RDW 17.5 % (11.9-15.9); WHITE BLOOD COUNT 10.2 K/mm3 (4.0-10.0)
[2020-07-25 08:46] LABS: INR 1.62 (0.83-1.09); PROTHROMBIN TIME (PATIENT) 19.6 SEC (9.7-13.0); URIC ACID 4.9 mg/dL (2.6-7.2)
[2020-07-25 08:49] LABS: ACTIVATED PTT 38.7 SECONDS (25.2-36.5)
[2020-07-25 08:55] LABS: ALBUMIN 2.9 g/dl (3.4-5.0); CALCIUM 7.2 mg/dL (8.5-10.1)
[2020-07-25 08:56] LABS: BLOOD UREA NITROGEN 38.8 mg/dL (7-18); MAGNESIUM 1.9 mg/dL (1.8-2.4)
[2020-07-25 08:59] LABS: CREATININE 5.9 mg/dL (0.55-1.3); PHOSPHOROUS 4.1 mg/dL (2.5-4.9)
[2020-07-25 09:01] LABS: BILIRUBIN,TOTAL 1.7 mg/dL (0.2-1); TOT PROT 6.8 g/dl (6.4-8.2)
[2020-07-25] MEDS ORDERED: DOCUSATE SODIUM 100 MG CAPSULE (FP) PO SCH (10:00)
[2020-07-25] MEDS ORDERED: ASPIRIN 81 MG CHEWABLE TABLETS PO SCH (10:00)
[2020-07-25] MEDS ORDERED: CLOPIDOGREL BISULFATE 75 MG TABLET (FP) PO SCH (10:00)
[2020-07-25] MEDS ORDERED: CEFTRIAXONE 2 GM in DEXTROSE 5%-WATER 2 GM/100 ML BAG IVPB SCH (13:30)
[2020-07-25] MEDS ORDERED: VANCOMYCIN 1 GM in D5W (PRE-DOCKED) 1,000 MG/250 ML IVPB SCH ×2 (13:30→14:00)
[2020-07-25] MEDS ORDERED: EPOETIN ALFA-EPBX 3,000 UNIT/ML VIAL IVPUSH ONE (13:35)
[2020-07-25] MEDS ORDERED: CEFTRIAXONE 2 GM/100 ML BAG IVPB ONE (14:22)
[2020-07-25] MEDS ORDERED: VANCOMYCIN 1 GRAM (PRE-DOCKED) 1,000 MG/250 ML BAG IVPB ONE ×3 (14:48→15:17)
[2020-07-25] MEDS ORDERED: predniSONE 20 MG TABLET (UD) PO SCH (15:00)
[2020-07-25] MEDS ORDERED: predniSONE 20 MG TABLET (UD) ONE (15:17)
[2020-07-25] MEDS ORDERED: ATORVASTATIN CA 40 MG TABLET (FP) PO SCH (22:00)
[2020-07-25] MEDS ORDERED: ATORVASTATIN CA 80 MG TABLET (FP) PO SCH (22:00)
[2020-07-25] MEDS ORDERED: ATORVASTATIN CA 40 MG TABLET (FP) ONE (23:00)
[2020-07-26] MEDS: oxyCODONE HCL 5 MG TABLET PO PRN ×2 (02:55→03:10)
[2020-07-26] MEDS ORDERED: EPOETIN ALFA-EPBX 3,000 UNIT/ML VIAL IVPUSH ONE (09:00)
[2020-07-26 09:14] LABS: BASO % 0.3 % (0-2.0); HEMOGLOBIN 10.3 GM/dL (11.7-16.9); LYMPH % 6.1 % (8-40); MCH 29.5 pg (25.7-33.7); MCHC 32.1 g/dl (32.0-35.9); MEAN CELL VOLUME 91.7 fl (80-96); MEAN PLT VOLUME 8.2 fl (7.5-11.1); MONO % 4.9 % (3.8-10.2); NEUT % 88.7 % (42.8-82.8); PLATELET COUNT 141 K/MM3 (134-434); RBC 3.49 M/mm3 (4.00-5.60); RDW 17.1 % (11.9-15.9); WHITE BLOOD COUNT 9.3 K/mm3 (4.0-10.0)
[2020-07-26 09:35] LABS: ALBUMIN 2.4 g/dl (3.4-5.0); BLOOD UREA NITROGEN 59.8 mg/dL (7-18); CALCIUM 7.1 mg/dL (8.5-10.1); MAGNESIUM 2.1 mg/dL (1.8-2.4)
[2020-07-26 09:38] LABS: URIC ACID 6.5 mg/dL (2.6-7.2)
[2020-07-26 09:39] LABS: CREATININE 7.1 mg/dL (0.55-1.3)
[2020-07-26 09:40] LABS: BILIRUBIN,TOTAL 1.5 mg/dL (0.2-1); TOT PROT 5.9 g/dl (6.4-8.2)
[2020-07-26] MEDS ORDERED: CEFTRIAXONE 2 GM in DEXTROSE 5%-WATER 2 GM/100 ML BAG IVPB SCH (10:00)
[2020-07-26] MEDS ORDERED: predniSONE 20 MG TABLET (UD) PO SCH (10:00)
[2020-07-26] MEDS ORDERED: VANCOMYCIN 1 GM in D5W (PRE-DOCKED) 1,000 MG/250 ML IVPB SCH (10:00)
[2020-07-26] MEDS ORDERED: COLCHICINE 0.6 MG TAB PO SCH (10:00)
[2020-07-26] MEDS ORDERED: FAMCICLOVIR 250 MG TABLET PO SCH (10:00)
[2020-07-26] MEDS ORDERED: CLOPIDOGREL BISULFATE 75 MG TABLET (FP) PO SCH (10:00)
[2020-07-26] MEDS ORDERED: DEXTROSE 5%-WATER 100 ML IVPB ONE (11:58)
[2020-07-26] MEDS ORDERED: PT OWN MED DRAWER 7, Y5N ONE (12:07)
[2020-07-26] MEDS: DOCUSATE SODIUM 100 MG CAPSULE (FP) PO SCH (12:09)
[2020-07-26] MEDS: FAMCICLOVIR 250 MG TABLET PO SCH (12:10)
[2020-07-26] MEDS ORDERED: VANCOMYCIN 1 GRAM (PRE-DOCKED) 1,000 MG/250 ML BAG IVPB ONE (12:59)
[2020-07-26] MEDS ORDERED: diphenhydrAMINE HCL 25 MG CAPSULE (FP) PO ONE (15:00)
[2020-07-26 15:52] LABS: BF WBC & OTHER NUCLEATED CELLS 271129 /mm3
[2020-07-26] MEDS: COLLAGENASE CLOSTRIDIUM HIST. 30 GRAMS TUBE TP SCH (17:29)
[2020-07-26] MEDS ORDERED: ATORVASTATIN CA 40 MG TABLET (FP) PO SCH (22:00)
[2020-07-27] MEDS ORDERED: PT OWN MED DRAWER 7, Y5N ONE (09:18)
[2020-07-27] MEDS: DOCUSATE SODIUM 100 MG CAPSULE (FP) PO SCH ×2 (09:24→21:48)
[2020-07-27] MEDS: oxyCODONE HCL 5 MG TABLET PO PRN ×2 (09:25→15:18)
[2020-07-27 09:41] LABS: BASO % 0.9 % (0-2.0); EOS % 0.5 % (0-4.5); HEMATOCRIT 30.9 % (35.4-49); HEMOGLOBIN 9.9 GM/dL (11.7-16.9); LYMPH % 11.3 % (8-40); MCHC 31.9 g/dl (32.0-35.9); MEAN PLT VOLUME 7.9 fl (7.5-11.1); NEUT % 79.3 % (42.8-82.8); PLATELET COUNT 155 K/MM3 (134-434); RBC 3.29 M/mm3 (4.00-5.60); RDW 17.9 % (11.9-15.9); WHITE BLOOD COUNT 5.4 K/mm3 (4.0-10.0)
[2020-07-27] MEDS: COLLAGENASE CLOSTRIDIUM HIST. 30 GRAMS TUBE TP SCH (09:42)
[2020-07-27] MEDS: FAMCICLOVIR 250 MG TABLET PO SCH (09:42)
[2020-07-27] MEDS ORDERED: CEFAZOLIN 1 GM/D5W 1 GM/50 ML BAG IVPB SCH (10:00)
[2020-07-27 10:03] LABS: ALBUMIN 2.2 g/dl (3.4-5.0); BLOOD UREA NITROGEN 42.3 mg/dL (7-18)
[2020-07-27 10:06] LABS: CREATININE 5.3 mg/dL (0.55-1.3); PHOSPHOROUS 4.7 mg/dL (2.5-4.9)
[2020-07-27 10:07] LABS: TOT PROT 6.1 g/dl (6.4-8.2)
[2020-07-27 10:10] LABS: BILIRUBIN,TOTAL 1.2 mg/dL (0.2-1)
[2020-07-27 10:18] LABS: CALCIUM 7.6 mg/dL (8.5-10.1)
[2020-07-27] MEDS ORDERED: EPOETIN ALFA-EPBX 3,000 UNIT/ML VIAL IVPUSH ONE (14:45)
[2020-07-27] MEDS ORDERED: PROPOFOL 20 ML ONE ×2 (18:30→20:00)
[2020-07-27] MEDS ORDERED: ONDANSETRON 4 MG/2 ML VIAL IVPUSH PRN ×2 (18:33→20:25)
[2020-07-27] MEDS ORDERED: SODIUM CHLORIDE 1,000 ML IV SCH (18:45)
[2020-07-27] MEDS ORDERED: ceFAZolin SODIUM 1 GM VIAL IVPB ONE (19:00)
[2020-07-27] MEDS: ATORVASTATIN CA 40 MG TABLET (FP) PO SCH (21:48)
[2020-07-27 23:07] LABS: HEP B CORE AB, TOT Negative (Negative)
[2020-07-28] MEDS: oxyCODONE HCL 5 MG TABLET PO PRN ×2 (02:49→09:34)
[2020-07-28] MEDS: DOCUSATE SODIUM 100 MG CAPSULE (FP) PO SCH ×3 (05:44→22:11)
[2020-07-28] MEDS ORDERED: ATOVAQUONE 750 MG/5 ML (UNIT-DOSE PACKAGING) PO SCH (08:00)
[2020-07-28] MEDS: ATOVAQUONE 750 MG/5 ML (UNIT-DOSE PACKAGING) PO SCH ×2 (09:22→09:35)
[2020-07-28] MEDS: ASPIRIN 81 MG CHEWABLE TABLETS PO SCH ×2 (09:22→09:35)
[2020-07-28] MEDS: CEFAZOLIN 1 GM/D5W 1 GM/50 ML BAG IVPB SCH (09:22)
[2020-07-28] MEDS: CLOPIDOGREL BISULFATE 75 MG TABLET (FP) PO SCH ×2 (09:22→09:35)
[2020-07-28] MEDS ORDERED: PT OWN MED DRAWER 7, Y5N ONE (09:23)
[2020-07-28] MEDS: FAMCICLOVIR 250 MG TABLET PO SCH ×2 (09:24→09:35)
[2020-07-28] MEDS: COLLAGENASE CLOSTRIDIUM HIST. 30 GRAMS TUBE TP SCH (09:52)
[2020-07-28 10:38] LABS: ARTERIAL BLD GAS O2 SATURATION 97.7 mmHg (95-98); ARTERIAL BLOOD GAS BASE EXCESS 3.1 mmol/L (-2-2); ARTERIAL BLOOD GAS PO2 101.3 mmHg (80-100)
[2020-07-28 10:54] LABS: ALLENS TEST POSITIVE
[2020-07-28 12:39] LABS: BASO % 1.3 % (0-2.0); HEMATOCRIT 27.3 % (35.4-49); HEMOGLOBIN 8.2 GM/dL (11.7-16.9); LYMPH % 7.8 % (8-40); MCH 30.5 pg (25.7-33.7); MCHC 30.2 g/dl (32.0-35.9); MEAN CELL VOLUME 101.1 fl (80-96); MONO % 15.9 % (3.8-10.2); RDW 20.9 % (11.9-15.9); WHITE BLOOD COUNT 4.2 K/mm3 (4.0-10.0)
[2020-07-28 12:59] LABS: CALCIUM 7.6 mg/dL (8.5-10.1)
[2020-07-28 13:00] LABS: BLOOD UREA NITROGEN 36.5 mg/dL (7-18)
[2020-07-28 13:03] LABS: CREATININE 4.7 mg/dL (0.55-1.3)
[2020-07-28 13:04] LABS: BILIRUBIN,TOTAL 1.2 mg/dL (0.2-1)
[2020-07-28 13:05] LABS: TOT PROT 5.6 g/dl (6.4-8.2)
[2020-07-28 14:24] LABS: MEAN PLT VOLUME 6.1 fl (7.5-11.1); PLATELET COUNT 229 K/MM3 (134-434)
[2020-07-28 14:25] LABS: ANISOCYTOSIS 1+; MACROCYTOSIS 1+; OVALOCYTE 1+; PLATELET ESTIMATE ADEQUATE
[2020-07-28 14:26] LABS: TEAR DROP CELLS 1+
[2020-07-28 14:29] LABS: TARGET CELLS 1+
[2020-07-28 21:53] LABS: HEMATOCRIT 28.8 % (35.4-49); HEMOGLOBIN 8.8 GM/dL (11.7-16.9); MCH 29.3 pg (25.7-33.7); MCHC 30.6 g/dl (32.0-35.9); MEAN CELL VOLUME 95.9 fl (80-96); MEAN PLT VOLUME 7.8 fl (7.5-11.1); PLATELET COUNT 118 K/MM3 (134-434); RBC 3.01 M/mm3 (4.00-5.60); RDW 18.2 % (11.9-15.9); WHITE BLOOD COUNT 3.3 K/mm3 (4.0-10.0)
[2020-07-28 22:03] LABS: INR 1.4 (0.83-1.09); PROTHROMBIN TIME (PATIENT) 16.8 SEC (9.7-13.0)
[2020-07-28] MEDS: ATORVASTATIN CA 40 MG TABLET (FP) PO SCH (22:11)
[2020-07-28 22:15] LABS: CALCIUM 8.1 mg/dL (8.5-10.1)
[2020-07-28 22:16] LABS: ALBUMIN 1.9 g/dl (3.4-5.0); BLOOD UREA NITROGEN 43.2 mg/dL (7-18)
[2020-07-28 22:19] LABS: CREATININE 5.3 mg/dL (0.55-1.3)
[2020-07-28 22:20] LABS: TOT PROT 5.5 g/dl (6.4-8.2)
[2020-07-29] MEDS ORDERED: oxyCODONE HCL 5 MG TABLET PO ONE (06:07)
[2020-07-29] MEDS: DOCUSATE SODIUM 100 MG CAPSULE (FP) PO SCH ×4 (06:14→21:42)
[2020-07-29] MEDS: ATOVAQUONE 750 MG/5 ML (UNIT-DOSE PACKAGING) PO SCH ×2 (08:20→09:21)
[2020-07-29] MEDS ORDERED: PT OWN MED DRAWER 7, Y5N ONE (09:17)
[2020-07-29] MEDS: CEFAZOLIN 1 GM/D5W 1 GM/50 ML BAG IVPB SCH (09:20)
[2020-07-29] MEDS: ASPIRIN 81 MG CHEWABLE TABLETS PO SCH (09:20)
[2020-07-29] MEDS: CLOPIDOGREL BISULFATE 75 MG TABLET (FP) PO SCH (09:21)
[2020-07-29] MEDS: FAMCICLOVIR 250 MG TABLET PO SCH (09:21)
[2020-07-29] MEDS: COLLAGENASE CLOSTRIDIUM HIST. 30 GRAMS TUBE TP SCH (09:33)
[2020-07-29 12:38] LABS: BASO % 1.3 % (0-2.0); EOS % 3.8 % (0-4.5); HEMATOCRIT 30.1 % (35.4-49); HEMOGLOBIN 9.2 GM/dL (11.7-16.9); LYMPH % 14.8 % (8-40); MCH 29.5 pg (25.7-33.7); MCHC 30.6 g/dl (32.0-35.9); MEAN CELL VOLUME 96.5 fl (80-96); MEAN PLT VOLUME 8.3 fl (7.5-11.1); NEUT % 70.1 % (42.8-82.8); PLATELET COUNT 114 K/MM3 (134-434); RBC 3.12 M/mm3 (4.00-5.60); RDW 17.9 % (11.9-15.9); WHITE BLOOD COUNT 3.8 K/mm3 (4.0-10.0)
[2020-07-29 12:54] LABS: ALBUMIN 1.9 g/dl (3.4-5.0); BLOOD UREA NITROGEN 46.5 mg/dL (7-18); CALCIUM 7.8 mg/dL (8.5-10.1)
[2020-07-29 12:57] LABS: CREATININE 5.7 mg/dL (0.55-1.3)
[2020-07-29 12:59] LABS: BILIRUBIN,TOTAL 0.8 mg/dL (0.2-1); TOT PROT 5.8 g/dl (6.4-8.2)
[2020-07-29] MEDS ORDERED: ACETAMINOPHEN 1000 MG/100 ML BAG IVPB ONE ×3 (20:41→22:21)
[2020-07-29] MEDS: ATORVASTATIN CA 40 MG TABLET (FP) PO SCH ×2 (21:01→21:42)
[2020-07-29] MEDS: ACETAMINOPHEN 500 MG TABLET (FP) PO ONE ×2 (21:02→21:41)
[2020-07-29] MEDS ORDERED: ACETAMINOPHEN 500 MG TABLET (FP) PO ONE (22:17)
[2020-07-30] MEDS: oxyCODONE HCL 5 MG TABLET PO PRN ×3 (02:45→16:28)
[2020-07-30] MEDS: DOCUSATE SODIUM 100 MG CAPSULE (FP) PO SCH ×2 (05:58→15:32)
[2020-07-30] MEDS: ASPIRIN 81 MG CHEWABLE TABLETS PO SCH (10:40)
[2020-07-30] MEDS: CLOPIDOGREL BISULFATE 75 MG TABLET (FP) PO SCH (10:41)
[2020-07-30] MEDS: ATOVAQUONE 750 MG/5 ML (UNIT-DOSE PACKAGING) PO SCH (10:41)
[2020-07-30] MEDS: FAMCICLOVIR 250 MG TABLET PO SCH (10:41)
[2020-07-30] MEDS: CEFAZOLIN 1 GM/D5W 1 GM/50 ML BAG IVPB SCH (10:41)
[2020-07-30] MEDS: COLLAGENASE CLOSTRIDIUM HIST. 30 GRAMS TUBE TP SCH (10:42)
[2020-07-30] MEDS: lamiVUDine 10 MG/1 ML BULK BOTTLE PO SCH (15:32)
[2020-07-31] MEDS ORDERED: PT OWN MED DRAWER 7, Y5N ONE ×3 (00:22→22:14)
[2020-07-31] MEDS: RALTEGRAVIR POTASSIUM 400 MG TAB PO SCH ×3 (00:31→22:54)
[2020-07-31] MEDS: ATORVASTATIN CA 40 MG TABLET (FP) PO SCH ×2 (00:31→22:54)
[2020-07-31] MEDS: ABACAVIR SULFATE 300 MG TABLET PO SCH ×3 (00:31→22:53)
[2020-07-31] MEDS: DOCUSATE SODIUM 100 MG CAPSULE (FP) PO SCH ×4 (00:31→22:54)
[2020-07-31 09:55] LABS: CHLORIDE 104 mmol/L (98-107); SODIUM 142 mmol/L (136-145)
[2020-07-31 10:01] LABS: BLOOD UREA NITROGEN 66.8 mg/dL (7-18)
[2020-07-31 10:02] LABS: ANION GAP 13 MMOL/L (8-16); CO2 25 mmol/L (21-32); GLUCOSE,RANDOM 81 mg/dL (74-106); MAGNESIUM 2.6 mg/dL (1.8-2.4)
[2020-07-31 10:04] LABS: CALCIUM 7.9 mg/dL (8.5-10.1)
[2020-07-31 10:05] LABS: SGOT/AST 67 U/L (15-37); SGPT/ALT < 6 U/L (13-61)
[2020-07-31 10:06] LABS: BILIRUBIN,TOTAL 1.4 mg/dL (0.2-1); PHOSPHOROUS 5.8 mg/dL (2.5-4.9)
[2020-07-31 10:07] LABS: TOT PROT 5.9 g/dl (6.4-8.2)
[2020-07-31] MEDS: ASPIRIN 81 MG CHEWABLE TABLETS PO SCH (10:10)
[2020-07-31] MEDS: FAMCICLOVIR 250 MG TABLET PO SCH (10:10)
[2020-07-31] MEDS: CEFAZOLIN 1 GM/D5W 1 GM/50 ML BAG IVPB SCH (10:11)
[2020-07-31] MEDS: ATOVAQUONE 750 MG/5 ML (UNIT-DOSE PACKAGING) PO SCH (10:11)
[2020-07-31] MEDS: lamiVUDine 10 MG/1 ML BULK BOTTLE PO SCH (10:11)
[2020-07-31] MEDS: COLLAGENASE CLOSTRIDIUM HIST. 30 GRAMS TUBE TP SCH (10:11)
[2020-07-31] MEDS: CLOPIDOGREL BISULFATE 75 MG TABLET (FP) PO SCH (10:11)
[2020-07-31 10:15] LABS: ALK PHOS 359 U/L (45-117)
[2020-07-31 11:23] LABS: CREATININE 7.9 mg/dL (0.55-1.3)
[2020-07-31] MEDS ORDERED: clonazePAM 0.5 MG TABLET PO ONE ×2 (17:56→22:30)
[2020-07-31] MEDS ORDERED: EPOETIN ALFA-EPBX 10,000 UNIT/ML VIAL IVPUSH ONE (20:00)
[2020-08-01] MEDS: DOCUSATE SODIUM 100 MG CAPSULE (FP) PO SCH ×3 (06:37→21:26)
[2020-08-01 09:10] LABS: BASO % 0.5 % (0-2.0); EOS % 3.4 % (0-4.5); HEMATOCRIT 31.1 % (35.4-49); HEMOGLOBIN 9.8 GM/dL (11.7-16.9); LYMPH % 12.2 % (8-40); MCH 29.3 pg (25.7-33.7); MCHC 31.5 g/dl (32.0-35.9); MEAN CELL VOLUME 92.9 fl (80-96); MEAN PLT VOLUME 8.5 fl (7.5-11.1); MONO % 6.5 % (3.8-10.2); NEUT % 77.4 % (42.8-82.8); PLATELET COUNT 151 K/MM3 (134-434); RBC 3.34 M/mm3 (4.00-5.60); RDW 17.7 % (11.9-15.9); WHITE BLOOD COUNT 5.7 K/mm3 (4.0-10.0)
[2020-08-01 09:29] LABS: CHLORIDE 102 mmol/L (98-107); SODIUM 144 mmol/L (136-145)
[2020-08-01 09:32] LABS: ANION GAP 9 MMOL/L (8-16); CALCIUM 8.5 mg/dL (8.5-10.1); CO2 32 mmol/L (21-32); MAGNESIUM 2.2 mg/dL (1.8-2.4)
[2020-08-01 09:33] LABS: GLUCOSE,RANDOM 97 mg/dL (74-106)
[2020-08-01 09:35] LABS: CREATININE 5.4 mg/dL (0.55-1.3); SGOT/AST 55 U/L (15-37)
[2020-08-01 09:37] LABS: BILIRUBIN,TOTAL 1.2 mg/dL (0.2-1); TOT PROT 6.3 g/dl (6.4-8.2)
[2020-08-01] MEDS: CEFAZOLIN 1 GM/D5W 1 GM/50 ML BAG IVPB SCH (09:40)
[2020-08-01] MEDS: lamiVUDine 10 MG/1 ML BULK BOTTLE PO SCH (09:40)
[2020-08-01] MEDS: CLOPIDOGREL BISULFATE 75 MG TABLET (FP) PO SCH (09:40)
[2020-08-01] MEDS: ASPIRIN 81 MG CHEWABLE TABLETS PO SCH (09:40)
[2020-08-01] MEDS: FAMCICLOVIR 250 MG TABLET PO SCH (09:41)
[2020-08-01] MEDS: COLLAGENASE CLOSTRIDIUM HIST. 30 GRAMS TUBE TP SCH (09:41)
[2020-08-01] MEDS: RALTEGRAVIR POTASSIUM 400 MG TAB PO SCH ×2 (09:41→21:26)
[2020-08-01] MEDS: ATOVAQUONE 750 MG/5 ML (UNIT-DOSE PACKAGING) PO SCH (09:41)
[2020-08-01] MEDS: ABACAVIR SULFATE 300 MG TABLET PO SCH ×2 (09:42→21:28)
[2020-08-01 09:47] LABS: ALK PHOS 392 U/L (45-117); SGPT/ALT < 6 U/L (13-61)
[2020-08-01] MEDS ORDERED: oxyCODONE HCL 5 MG TABLET PO PRN (10:56)
[2020-08-01] MEDS: oxyCODONE HCL 5 MG TABLET PO PRN ×2 (12:42→21:29)
[2020-08-01] MEDS ORDERED: clonazePAM 0.5 MG TABLET PO ONE (13:10)
[2020-08-01 14:17] LABS: BF WBC & OTHER NUCLEATED CELLS 2111 /mm3
[2020-08-01 14:18] LABS: BODY FLUID MACROPHAGES 16 %; BODY FLUID MONOCYTE 11 %
[2020-08-01] MEDS ORDERED: PT OWN MED DRAWER 7, Y5N ONE (21:14)
[2020-08-01] MEDS: ATORVASTATIN CA 40 MG TABLET (FP) PO SCH (21:26)
[2020-08-01] MEDS: clonazePAM 0.5 MG TABLET PO SCH (21:26)
[2020-08-02] MEDS ORDERED: LORazepam 2 MG/ML SDV VIAL IVPUSH ONE (02:11)
[2020-08-02] MEDS: DOCUSATE SODIUM 100 MG CAPSULE (FP) PO SCH ×3 (05:56→22:00)
[2020-08-02] MEDS ORDERED: PT OWN MED DRAWER 7, Y5N ONE ×3 (09:50→21:51)
[2020-08-02] MEDS: ATOVAQUONE 750 MG/5 ML (UNIT-DOSE PACKAGING) PO SCH (10:03)
[2020-08-02] MEDS: FAMCICLOVIR 250 MG TABLET PO SCH (10:05)
[2020-08-02] MEDS: RALTEGRAVIR POTASSIUM 400 MG TAB PO SCH ×2 (10:05→22:00)
[2020-08-02] MEDS: lamiVUDine 10 MG/1 ML BULK BOTTLE PO SCH (10:05)
[2020-08-02] MEDS: CEFAZOLIN 1 GM/D5W 1 GM/50 ML BAG IVPB SCH ×2 (10:05→17:49)
[2020-08-02] MEDS: ABACAVIR SULFATE 300 MG TABLET PO SCH ×2 (10:09→22:00)
[2020-08-02] MEDS: COLLAGENASE CLOSTRIDIUM HIST. 30 GRAMS TUBE TP SCH (10:19)
[2020-08-02 10:55] LABS: BASO % 1.1 % (0-2.0); EOS % 5.3 % (0-4.5); HEMOGLOBIN 9.4 GM/dL (11.7-16.9); LYMPH % 17.2 % (8-40); MCH 29.4 pg (25.7-33.7); MCHC 31.5 g/dl (32.0-35.9); MEAN CELL VOLUME 93.5 fl (80-96); MEAN PLT VOLUME 8.8 fl (7.5-11.1); NEUT % 71.4 % (42.8-82.8); PLATELET COUNT 209 K/MM3 (134-434); RBC 3.21 M/mm3 (4.00-5.60); RDW 17.8 % (11.9-15.9); WHITE BLOOD COUNT 8.1 K/mm3 (4.0-10.0)
[2020-08-02 11:10] LABS: CHLORIDE 101 mmol/L (98-107); SODIUM 141 mmol/L (136-145)
[2020-08-02 11:14] LABS: ANION GAP 10 MMOL/L (8-16); CALCIUM 9.2 mg/dL (8.5-10.1); CO2 30 mmol/L (21-32)
[2020-08-02 11:15] LABS: ALBUMIN 2.1 g/dl (3.4-5.0); GLUCOSE,RANDOM 127 mg/dL (74-106); MAGNESIUM 2.3 mg/dL (1.8-2.4)
[2020-08-02 11:17] LABS: SGOT/AST 50 U/L (15-37); SGPT/ALT < 6 U/L (13-61)
[2020-08-02 11:18] LABS: CREATININE 6.8 mg/dL (0.55-1.3); PHOSPHOROUS 4.4 mg/dL (2.5-4.9)
[2020-08-02] MEDS: ASPIRIN 81 MG CHEWABLE TABLETS PO SCH (11:18)
[2020-08-02] MEDS: CLOPIDOGREL BISULFATE 75 MG TABLET (FP) PO SCH (11:18)
[2020-08-02 11:19] LABS: BILIRUBIN,TOTAL 0.9 mg/dL (0.2-1)
[2020-08-02 11:20] LABS: ALK PHOS 386 U/L (45-117)
[2020-08-02 11:21] LABS: BLOOD UREA NITROGEN 64.3 mg/dL (7-18); TOT PROT 6.6 g/dl (6.4-8.2)
[2020-08-02] MEDS ORDERED: SODIUM CHLORIDE 250 ML IV PRN (14:40)
[2020-08-02] MEDS ORDERED: EPOETIN ALFA-EPBX 3,000 UNIT/ML VIAL IVPUSH ONE (15:00)
[2020-08-02] MEDS: AMINO ACIDS/PROTEIN HYDROLYS 30 ML LIQUID.PKT PO SCH (17:50)
[2020-08-02] MEDS ORDERED: LORazepam 2 MG/ML SDV VIAL IM ONE (18:15)
[2020-08-02] MEDS: ATORVASTATIN CA 40 MG TABLET (FP) PO SCH (22:00)
[2020-08-02] MEDS: clonazePAM 0.5 MG TABLET PO SCH (22:00)
[2020-08-03] MEDS ORDERED: SODIUM CHLORIDE 250 ML IV STA (01:24)
[2020-08-03] MEDS: DOCUSATE SODIUM 100 MG CAPSULE (FP) PO SCH ×3 (05:29→21:14)
[2020-08-03] MEDS: RALTEGRAVIR POTASSIUM 400 MG TAB PO SCH ×2 (10:38→21:14)
[2020-08-03] MEDS: lamiVUDine 10 MG/1 ML BULK BOTTLE PO SCH (10:38)
[2020-08-03] MEDS: ATOVAQUONE 750 MG/5 ML (UNIT-DOSE PACKAGING) PO SCH (10:38)
[2020-08-03] MEDS: VITAMIN B COMP W-C 1 EA TABLET (NEPHRO-VITE) PO SCH (10:38)
[2020-08-03] MEDS: AMINO ACIDS/PROTEIN HYDROLYS 30 ML LIQUID.PKT PO SCH ×2 (10:38→17:52)
[2020-08-03] MEDS: ABACAVIR SULFATE 300 MG TABLET PO SCH ×2 (10:39→21:16)
[2020-08-03] MEDS: CEFAZOLIN 1 GM/D5W 1 GM/50 ML BAG IVPB SCH (11:25)
[2020-08-03] MEDS ORDERED: PANTOPRAZOLE SODIUM 40 MG VIAL IVPUSH ONE (11:30)
[2020-08-03] MEDS: COLLAGENASE CLOSTRIDIUM HIST. 30 GRAMS TUBE TP SCH (13:57)
[2020-08-03 14:03] LABS: ALBUMIN 1.8 g/dl (3.4-5.0); ALK PHOS 293 U/L (45-117); ANION GAP 10 MMOL/L (8-16); BILIRUBIN,TOTAL 0.8 mg/dL (0.2-1); BLOOD UREA NITROGEN 60.4 mg/dL (7-18); CALCIUM 8.2 mg/dL (8.5-10.1); CHLORIDE 104 mmol/L (98-107); CO2 28 mmol/L (21-32); CREATININE 5.4 mg/dL (0.55-1.3); GLUCOSE,RANDOM 96 mg/dL (74-106); PHOSPHOROUS 3.6 mg/dL (2.5-4.9); SGOT/AST 56 U/L (15-37); SGPT/ALT < 6 U/L (13-61); SODIUM 142 mmol/L (136-145); TOT PROT 5.8 g/dl (6.4-8.2)
[2020-08-03] MEDS: PANTOPRAZOLE SODIUM 80 MG in SODIUM CHLORIDE 100 ML IVPB SCH ×2 (14:14→22:48)
[2020-08-03 14:37] LABS: BASO % 1.2 % (0-2.0); EOS % 3.5 % (0-4.5); HEMATOCRIT 23.2 % (35.4-49); HEMOGLOBIN 7.3 GM/dL (11.7-16.9); LYMPH % 19.2 % (8-40); MCHC 31.6 g/dl (32.0-35.9); MEAN PLT VOLUME 8.7 fl (7.5-11.1); MONO % 7.1 % (3.8-10.2); PLATELET COUNT 177 K/MM3 (134-434); RBC 2.44 M/mm3 (4.00-5.60); RDW 17.6 % (11.9-15.9); WHITE BLOOD COUNT 6.7 K/mm3 (4.0-10.0)
[2020-08-03 17:16] LABS: HEMATOCRIT 22.8 % (35.4-49); HEMOGLOBIN 7.2 GM/dL (11.7-16.9); MCH 29.6 pg (25.7-33.7); MCHC 31.5 g/dl (32.0-35.9); MEAN PLT VOLUME 8.8 fl (7.5-11.1); PLATELET COUNT 173 K/MM3 (134-434); RBC 2.42 M/mm3 (4.00-5.60); RDW 17.4 % (11.9-15.9); WHITE BLOOD COUNT 5.7 K/mm3 (4.0-10.0)
[2020-08-03] MEDS: oxyCODONE HCL 5 MG TABLET PO PRN (18:38)
[2020-08-03] MEDS ORDERED: PT OWN MED DRAWER 7, Y5N ONE (19:52)
[2020-08-03] MEDS: clonazePAM 0.5 MG TABLET PO SCH (21:14)
[2020-08-03] MEDS: ATORVASTATIN CA 40 MG TABLET (FP) PO SCH (21:15)
[2020-08-03] MEDS ORDERED: MUPIROCIN 2% TOPICAL OINTMENT FOR DECOLONIZATION NS SCH (22:00)
[2020-08-03] MEDS ORDERED: CHLORHEXIDINE GLUCONATE 4% CLEANSER FOR DECOLONIZATION TP SCH (22:00)
[2020-08-03] MEDS ORDERED: MAGNESIUM SULF 50% (8.12 MEQ/2 ML-1 GM VIAL) IVPB ONE (23:34)
[2020-08-03] MEDS ORDERED: CEFTRIAXONE 2 GM in DEXTROSE 5%-WATER 100 ML IVPB ONE (23:55)
[2020-08-04] MEDS ORDERED: DEXTROSE 5%-WATER 100 ML IVPB ONE (01:12)
[2020-08-04 03:38] LABS: HEMATOCRIT 24.6 % (35.4-49); MCH 29.6 pg (25.7-33.7); MCHC 32.4 g/dl (32.0-35.9); MEAN CELL VOLUME 91.3 fl (80-96); MEAN PLT VOLUME 8.8 fl (7.5-11.1); PLATELET COUNT 153 K/MM3 (134-434); RDW 17.8 % (11.9-15.9); WHITE BLOOD COUNT 5.1 K/mm3 (4.0-10.0)
[2020-08-04] MEDS: DOCUSATE SODIUM 100 MG CAPSULE (FP) PO SCH ×3 (05:49→21:38)
[2020-08-04 08:43] LABS: BASO % 0.2 % (0-2.0); EOS % 4.3 % (0-4.5); HEMATOCRIT 24.9 % (35.4-49); HEMOGLOBIN 8.1 GM/dL (11.7-16.9); LYMPH % 14.9 % (8-40); MCH 29.4 pg (25.7-33.7); MCHC 32.3 g/dl (32.0-35.9); MEAN PLT VOLUME 8.6 fl (7.5-11.1); MONO % 5.2 % (3.8-10.2); NEUT % 75.4 % (42.8-82.8); PLATELET COUNT 163 K/MM3 (134-434); RBC 2.74 M/mm3 (4.00-5.60); WHITE BLOOD COUNT 4.8 K/mm3 (4.0-10.0)
[2020-08-04 09:03] LABS: CHLORIDE 101 mmol/L (98-107); SODIUM 141 mmol/L (136-145)
[2020-08-04 09:08] LABS: ALBUMIN 1.7 g/dl (3.4-5.0)
[2020-08-04 09:09] LABS: ANION GAP 9 MMOL/L (8-16); BLOOD UREA NITROGEN 65.6 mg/dL (7-18); CALCIUM 8.3 mg/dL (8.5-10.1); CO2 31 mmol/L (21-32); GLUCOSE,RANDOM 77 mg/dL (74-106)
[2020-08-04 09:10] LABS: MAGNESIUM 2.3 mg/dL (1.8-2.4)
[2020-08-04 09:11] LABS: CREATININE 5.9 mg/dL (0.55-1.3); PHOSPHOROUS 3.9 mg/dL (2.5-4.9); SGOT/AST 48 U/L (15-37)
[2020-08-04] MEDS: PANTOPRAZOLE SODIUM 80 MG in SODIUM CHLORIDE 100 ML IVPB SCH ×2 (09:11→18:50)
[2020-08-04 09:13] LABS: BILIRUBIN,TOTAL 0.9 mg/dL (0.2-1); TOT PROT 5.5 g/dl (6.4-8.2)
[2020-08-04 09:14] LABS: ALK PHOS 286 U/L (45-117)
[2020-08-04 09:26] LABS: SGPT/ALT < 6 U/L (13-61)
[2020-08-04] MEDS: AMINO ACIDS/PROTEIN HYDROLYS 30 ML LIQUID.PKT PO SCH ×2 (09:39→16:52)
[2020-08-04] MEDS: lamiVUDine 10 MG/1 ML BULK BOTTLE PO SCH (09:40)
[2020-08-04] MEDS: ATOVAQUONE 750 MG/5 ML (UNIT-DOSE PACKAGING) PO SCH (09:40)
[2020-08-04] MEDS: RALTEGRAVIR POTASSIUM 400 MG TAB PO SCH ×2 (09:40→21:39)
[2020-08-04] MEDS: VITAMIN B COMP W-C 1 EA TABLET (NEPHRO-VITE) PO SCH (09:40)
[2020-08-04] MEDS: oxyCODONE HCL 5 MG TABLET PO PRN (09:41)
[2020-08-04] MEDS: ABACAVIR SULFATE 300 MG TABLET PO SCH ×2 (09:41→21:38)
[2020-08-04] MEDS: COLLAGENASE CLOSTRIDIUM HIST. 30 GRAMS TUBE TP SCH (15:08)
[2020-08-04] MEDS ORDERED: EPOETIN ALFA-EPBX 10,000 UNIT/ML VIAL IVPUSH ONE (15:30)
[2020-08-04 16:06] LABS: HEMATOCRIT 27.9 % (35.4-49); HEMOGLOBIN 9.1 GM/dL (11.7-16.9); MCH 29.5 pg (25.7-33.7); MCHC 32.8 g/dl (32.0-35.9); MEAN CELL VOLUME 89.8 fl (80-96); MEAN PLT VOLUME 8.3 fl (7.5-11.1); PLATELET COUNT 183 K/MM3 (134-434); RDW 18.1 % (11.9-15.9); WHITE BLOOD COUNT 5.8 K/mm3 (4.0-10.0)
[2020-08-04] MEDS: ATORVASTATIN CA 40 MG TABLET (FP) PO SCH (21:38)
[2020-08-04] MEDS: clonazePAM 0.5 MG TABLET PO SCH (22:01)
[2020-08-05] MEDS: clonazePAM 0.5 MG TABLET PO SCH ×2 (00:32→21:00)
[2020-08-05 06:47] LABS: HEMATOCRIT 30.8 % (35.4-49); HEMOGLOBIN 10.3 GM/dL (11.7-16.9); MCH 30.1 pg (25.7-33.7); MCHC 33.6 g/dl (32.0-35.9); MEAN CELL VOLUME 89.7 fl (80-96); MEAN PLT VOLUME 8.4 fl (7.5-11.1); PLATELET COUNT 177 K/MM3 (134-434); RBC 3.43 M/mm3 (4.00-5.60); RDW 17.3 % (11.9-15.9); WHITE BLOOD COUNT 5.6 K/mm3 (4.0-10.0)
[2020-08-05] MEDS: PANTOPRAZOLE SODIUM 80 MG in SODIUM CHLORIDE 100 ML IVPB SCH ×2 (06:52→17:46)
[2020-08-05] MEDS: DOCUSATE SODIUM 100 MG CAPSULE (FP) PO SCH ×3 (06:53→21:36)
[2020-08-05 07:06] LABS: CHLORIDE 100 mmol/L (98-107); SODIUM 141 mmol/L (136-145)
[2020-08-05 07:08] LABS: CALCIUM 8.1 mg/dL (8.5-10.1)
[2020-08-05 07:09] LABS: ALBUMIN 1.8 g/dl (3.4-5.0); ANION GAP 8 MMOL/L (8-16); CO2 33 mmol/L (21-32); GLUCOSE,RANDOM 71 mg/dL (74-106)
[2020-08-05 07:12] LABS: CREATININE 4.2 mg/dL (0.55-1.3); SGOT/AST 45 U/L (15-37)
[2020-08-05 07:14] LABS: BILIRUBIN,TOTAL 1.1 mg/dL (0.2-1); TOT PROT 5.6 g/dl (6.4-8.2)
[2020-08-05 07:15] LABS: ALK PHOS 283 U/L (45-117)
[2020-08-05 07:16] LABS: BLOOD UREA NITROGEN 39.4 mg/dL (7-18); SGPT/ALT < 6 U/L (13-61)
[2020-08-05] MEDS ORDERED: ceFAZolin SODIUM 1 GM VIAL ONE (09:38)
[2020-08-05] MEDS ORDERED: DEXTROSE 5%-WATER - 50 ML IVPB ONE (09:38)
[2020-08-05] MEDS: ATOVAQUONE 750 MG/5 ML (UNIT-DOSE PACKAGING) PO SCH (09:41)
[2020-08-05] MEDS: CEFAZOLIN 1 GM in DEXTROSE 5%-WATER - 50 ML IVPB SCH (09:41)
[2020-08-05] MEDS: RALTEGRAVIR POTASSIUM 400 MG TAB PO SCH ×2 (09:42→23:47)
[2020-08-05] MEDS: ABACAVIR SULFATE 300 MG TABLET PO SCH ×2 (09:42→23:47)
[2020-08-05] MEDS: VITAMIN B COMP W-C 1 EA TABLET (NEPHRO-VITE) PO SCH (09:42)
[2020-08-05] MEDS: AMINO ACIDS/PROTEIN HYDROLYS 30 ML LIQUID.PKT PO SCH ×2 (09:42→17:36)
[2020-08-05] MEDS: lamiVUDine 10 MG/1 ML BULK BOTTLE PO SCH (09:42)
[2020-08-05] MEDS ORDERED: PT OWN MED DRAWER 7, Y5N ONE ×2 (10:06→23:44)
[2020-08-05] MEDS ORDERED: ONDANSETRON 4 MG/2 ML VIAL IVPUSH PRN ×2 (12:28→12:32)
[2020-08-05] MEDS: COLLAGENASE CLOSTRIDIUM HIST. 30 GRAMS TUBE TP SCH (13:00)
[2020-08-05] MEDS: ACETAMINOPHEN 1000 MG/100 ML BAG IVPB PRN ×2 (17:44→23:45)
[2020-08-05] MEDS: ATORVASTATIN CA 40 MG TABLET (FP) PO SCH (21:36)
[2020-08-06] MEDS: DOCUSATE SODIUM 100 MG CAPSULE (FP) PO SCH ×3 (05:41→21:42)
[2020-08-06] MEDS: PANTOPRAZOLE SODIUM 80 MG in SODIUM CHLORIDE 100 ML IVPB SCH (07:30)
[2020-08-06] MEDS: ATOVAQUONE 750 MG/5 ML (UNIT-DOSE PACKAGING) PO SCH ×2 (08:36→11:34)
[2020-08-06] MEDS: AMINO ACIDS/PROTEIN HYDROLYS 30 ML LIQUID.PKT PO SCH ×2 (08:44→16:35)
[2020-08-06] MEDS ORDERED: PT OWN MED DRAWER 7, Y5N ONE ×4 (10:58→21:08)
[2020-08-06] MEDS ORDERED: ceFAZolin SODIUM 1 GM VIAL ONE (11:25)
[2020-08-06] MEDS ORDERED: DEXTROSE 5%-WATER - 50 ML IVPB ONE (11:25)
[2020-08-06] MEDS: CEFAZOLIN 1 GM in DEXTROSE 5%-WATER - 50 ML IVPB SCH (11:34)
[2020-08-06] MEDS: lamiVUDine 10 MG/1 ML BULK BOTTLE PO SCH (11:35)
[2020-08-06] MEDS: VITAMIN B COMP W-C 1 EA TABLET (NEPHRO-VITE) PO SCH (11:35)
[2020-08-06] MEDS: COLLAGENASE CLOSTRIDIUM HIST. 30 GRAMS TUBE TP SCH (11:35)
[2020-08-06] MEDS: ABACAVIR SULFATE 300 MG TABLET PO SCH ×2 (11:36→21:41)
[2020-08-06] MEDS: RALTEGRAVIR POTASSIUM 400 MG TAB PO SCH ×2 (11:37→21:42)
[2020-08-06] MEDS: PANTOPRAZOLE 40 MG TABLET PO SCH ×2 (11:56→21:42)
[2020-08-06 13:58] LABS: BASO % 0.5 % (0-2.0); EOS % 3.6 % (0-4.5); HEMATOCRIT 32.9 % (35.4-49); HEMOGLOBIN 10.7 GM/dL (11.7-16.9); LYMPH % 16.2 % (8-40); MCH 29.8 pg (25.7-33.7); MCHC 32.6 g/dl (32.0-35.9); MEAN CELL VOLUME 91.4 fl (80-96); MEAN PLT VOLUME 8.5 fl (7.5-11.1); NEUT % 71.7 % (42.8-82.8); PLATELET COUNT 182 K/MM3 (134-434); RDW 17.2 % (11.9-15.9); WHITE BLOOD COUNT 6.7 K/mm3 (4.0-10.0)
[2020-08-06 14:15] LABS: CHLORIDE 98 mmol/L (98-107); SODIUM 136 mmol/L (136-145)
[2020-08-06 14:17] LABS: CALCIUM 8.7 mg/dL (8.5-10.1)
[2020-08-06 14:18] LABS: ALBUMIN 1.9 g/dl (3.4-5.0); ANION GAP 7 MMOL/L (8-16); BLOOD UREA NITROGEN 58.3 mg/dL (7-18); CO2 32 mmol/L (21-32); GLUCOSE,RANDOM 89 mg/dL (74-106)
[2020-08-06 14:21] LABS: CREATININE 5.5 mg/dL (0.55-1.3); SGOT/AST 59 U/L (15-37)
[2020-08-06 14:22] LABS: BILIRUBIN,TOTAL 0.9 mg/dL (0.2-1)
[2020-08-06 14:23] LABS: TOT PROT 6.1 g/dl (6.4-8.2)
[2020-08-06 14:32] LABS: ALK PHOS 391 U/L (45-117); SGPT/ALT < 6 U/L (13-61)
[2020-08-06] MEDS: ACETAMINOPHEN 500 MG TABLET (FP) PO PRN (18:48)
[2020-08-06] MEDS: clonazePAM 0.5 MG TABLET PO SCH (21:41)
[2020-08-06] MEDS: ATORVASTATIN CA 40 MG TABLET (FP) PO SCH (21:41)
[2020-08-07] MEDS: ACETAMINOPHEN 500 MG TABLET (FP) PO PRN ×3 (02:23→17:47)
[2020-08-07] MEDS: DOCUSATE SODIUM 100 MG CAPSULE (FP) PO SCH ×3 (06:05→21:53)
[2020-08-07 09:53] LABS: BASO % 1.2 % (0-2.0); EOS % 3.7 % (0-4.5); HEMOGLOBIN 10.2 GM/dL (11.7-16.9); LYMPH % 16.4 % (8-40); MCH 29.9 pg (25.7-33.7); MEAN CELL VOLUME 90.7 fl (80-96); MEAN PLT VOLUME 8.7 fl (7.5-11.1); MONO % 6.9 % (3.8-10.2); NEUT % 71.8 % (42.8-82.8); PLATELET COUNT 165 K/MM3 (134-434); RBC 3.42 M/mm3 (4.00-5.60); RDW 16.9 % (11.9-15.9); WHITE BLOOD COUNT 5.8 K/mm3 (4.0-10.0)
[2020-08-07 10:15] LABS: CHLORIDE 94 mmol/L (98-107); SODIUM 133 mmol/L (136-145)
[2020-08-07 10:17] LABS: CALCIUM 8.6 mg/dL (8.5-10.1)
[2020-08-07 10:18] LABS: ALBUMIN 1.6 g/dl (3.4-5.0); ANION GAP 9 MMOL/L (8-16); CO2 30 mmol/L (21-32); GLUCOSE,RANDOM 68 mg/dL (74-106); MAGNESIUM 2.3 mg/dL (1.8-2.4)
[2020-08-07 10:21] LABS: CREATININE 6.3 mg/dL (0.55-1.3); SGOT/AST 40 U/L (15-37); SGPT/ALT < 6 U/L (13-61)
[2020-08-07 10:22] LABS: BILIRUBIN,TOTAL 0.9 mg/dL (0.2-1); TOT PROT 5.2 g/dl (6.4-8.2)
[2020-08-07 10:33] LABS: ALK PHOS 291 U/L (45-117)
[2020-08-07] MEDS ORDERED: EPOETIN ALFA-EPBX 4,000 UNIT/ML VIAL IVPUSH ONE (11:03)
[2020-08-07] MEDS ORDERED: DEXTROSE 5%-WATER - 50 ML IVPB ONE (11:21)
[2020-08-07] MEDS ORDERED: ceFAZolin SODIUM 1 GM VIAL ONE (11:21)
[2020-08-07] MEDS ORDERED: PT OWN MED DRAWER 7, Y5N ONE ×3 (11:21→20:38)
[2020-08-07] MEDS: AMINO ACIDS/PROTEIN HYDROLYS 30 ML LIQUID.PKT PO SCH ×2 (13:14→17:46)
[2020-08-07] MEDS: PANTOPRAZOLE 40 MG TABLET PO SCH ×2 (13:14→21:53)
[2020-08-07] MEDS: VITAMIN B COMP W-C 1 EA TABLET (NEPHRO-VITE) PO SCH (13:14)
[2020-08-07] MEDS: lamiVUDine 10 MG/1 ML BULK BOTTLE PO SCH (13:15)
[2020-08-07] MEDS: CEFAZOLIN 1 GM in DEXTROSE 5%-WATER - 50 ML IVPB SCH (13:15)
[2020-08-07] MEDS: ATOVAQUONE 750 MG/5 ML (UNIT-DOSE PACKAGING) PO SCH (13:15)
[2020-08-07] MEDS: COLLAGENASE CLOSTRIDIUM HIST. 30 GRAMS TUBE TP SCH (13:16)
[2020-08-07] MEDS: ABACAVIR SULFATE 300 MG TABLET PO SCH ×2 (13:16→21:53)
[2020-08-07] MEDS: RALTEGRAVIR POTASSIUM 400 MG TAB PO SCH ×2 (13:16→21:54)
[2020-08-07] MEDS ORDERED: oxyCODONE HCL 5 MG TABLET PO ONE (21:43)
[2020-08-07] MEDS: ATORVASTATIN CA 40 MG TABLET (FP) PO SCH (21:53)
[2020-08-07] MEDS: clonazePAM 0.5 MG TABLET PO SCH (21:53)
[2020-08-08] MEDS: DOCUSATE SODIUM 100 MG CAPSULE (FP) PO SCH ×3 (05:36→22:00)
[2020-08-08] MEDS: ACETAMINOPHEN 500 MG TABLET (FP) PO PRN ×3 (05:46→20:33)
[2020-08-08] MEDS ORDERED: PT OWN MED DRAWER 7, Y5N ONE ×3 (09:04→21:18)
[2020-08-08] MEDS ORDERED: ceFAZolin SODIUM 1 GM VIAL ONE (09:04)
[2020-08-08] MEDS ORDERED: DEXTROSE 5%-WATER - 50 ML IVPB ONE (09:05)
[2020-08-08] MEDS: CEFAZOLIN 1 GM in DEXTROSE 5%-WATER - 50 ML IVPB SCH (09:40)
[2020-08-08] MEDS: AMINO ACIDS/PROTEIN HYDROLYS 30 ML LIQUID.PKT PO SCH ×2 (09:40→18:12)
[2020-08-08] MEDS: COLLAGENASE CLOSTRIDIUM HIST. 30 GRAMS TUBE TP SCH (09:41)
[2020-08-08] MEDS: VITAMIN B COMP W-C 1 EA TABLET (NEPHRO-VITE) PO SCH (09:41)
[2020-08-08] MEDS: PANTOPRAZOLE 40 MG TABLET PO SCH ×2 (09:41→21:34)
[2020-08-08] MEDS: ATOVAQUONE 750 MG/5 ML (UNIT-DOSE PACKAGING) PO SCH (12:46)
[2020-08-08] MEDS: ABACAVIR SULFATE 300 MG TABLET PO SCH ×2 (12:47→21:36)
[2020-08-08] MEDS: RALTEGRAVIR POTASSIUM 400 MG TAB PO SCH ×2 (12:47→21:33)
[2020-08-08] MEDS: lamiVUDine 10 MG/1 ML BULK BOTTLE PO SCH (12:47)
[2020-08-08 12:54] LABS: ALK PHOS 405 U/L (45-117); ANION GAP 13 MMOL/L (8-16); BILIRUBIN,TOTAL 0.8 mg/dL (0.2-1); BLOOD UREA NITROGEN 48.2 mg/dL (7-18); CALCIUM 8.7 mg/dL (8.5-10.1); CHLORIDE 96 mmol/L (98-107); CO2 25 mmol/L (21-32); CREATININE 4.8 mg/dL (0.55-1.3); GLUCOSE,RANDOM 87 mg/dL (74-106); MAGNESIUM 2.2 mg/dL (1.8-2.4); PHOSPHOROUS 4.9 mg/dL (2.5-4.9); SGOT/AST 58 U/L (15-37); SGPT/ALT < 6 U/L (13-61); SODIUM 134 mmol/L (136-145); TOT PROT 6.3 g/dl (6.4-8.2)
[2020-08-08] MEDS: clonazePAM 0.5 MG TABLET PO SCH (21:34)
[2020-08-08] MEDS: ATORVASTATIN CA 40 MG TABLET (FP) PO SCH (21:34)
[2020-08-09] MEDS: ACETAMINOPHEN 500 MG TABLET (FP) PO PRN ×3 (03:40→20:13)
[2020-08-09] MEDS: DOCUSATE SODIUM 100 MG CAPSULE (FP) PO SCH ×2 (05:49→16:18)
[2020-08-09] MEDS ORDERED: EPOETIN ALFA-EPBX 3,000 UNIT/ML VIAL SQ ONE (10:00)
[2020-08-09] MEDS ORDERED: ceFAZolin SODIUM 1 GM VIAL ONE (10:05)
[2020-08-09] MEDS ORDERED: DEXTROSE 5%-WATER - 50 ML IVPB ONE (10:05)
[2020-08-09] MEDS ORDERED: PT OWN MED DRAWER 7, Y5N ONE ×2 (10:05→12:24)
[2020-08-09 11:13] LABS: BASO % 2.3 % (0-2.0); EOS % 3.3 % (0-4.5); HEMATOCRIT 32.3 % (35.4-49); HEMOGLOBIN 10.4 GM/dL (11.7-16.9); LYMPH % 15.7 % (8-40); MCH 29.4 pg (25.7-33.7); MCHC 32.2 g/dl (32.0-35.9); MEAN CELL VOLUME 91.5 fl (80-96); MEAN PLT VOLUME 8.3 fl (7.5-11.1); MONO % 7.6 % (3.8-10.2); NEUT % 71.1 % (42.8-82.8); PLATELET COUNT 189 K/MM3 (134-434); RBC 3.53 M/mm3 (4.00-5.60); RDW 18.1 % (11.9-15.9); WHITE BLOOD COUNT 5.1 K/mm3 (4.0-10.0)
[2020-08-09 11:28] VITALS: TEMP 96.3
[2020-08-09] MEDS: PANTOPRAZOLE 40 MG TABLET PO SCH (11:34)
[2020-08-09] MEDS: AMINO ACIDS/PROTEIN HYDROLYS 30 ML LIQUID.PKT PO SCH ×2 (11:34→18:42)
[2020-08-09] MEDS: CEFAZOLIN 1 GM in DEXTROSE 5%-WATER - 50 ML IVPB SCH (11:34)
[2020-08-09] MEDS: VITAMIN B COMP W-C 1 EA TABLET (NEPHRO-VITE) PO SCH (11:34)
[2020-08-09] MEDS: lamiVUDine 10 MG/1 ML BULK BOTTLE PO SCH (11:35)
[2020-08-09] MEDS: ATOVAQUONE 750 MG/5 ML (UNIT-DOSE PACKAGING) PO SCH (11:35)
[2020-08-09] MEDS: RALTEGRAVIR POTASSIUM 400 MG TAB PO SCH (11:35)
[2020-08-09] MEDS: COLLAGENASE CLOSTRIDIUM HIST. 30 GRAMS TUBE TP SCH (11:36)
[2020-08-09] MEDS: ABACAVIR SULFATE 300 MG TABLET PO SCH (11:36)
[2020-08-09 11:39] LABS: CHLORIDE 94 mmol/L (98-107); SODIUM 133 mmol/L (136-145)
[2020-08-09 11:41] LABS: ALBUMIN 1.7 g/dl (3.4-5.0); ANION GAP 10 MMOL/L (8-16); BLOOD UREA NITROGEN 64.6 mg/dL (7-18); CALCIUM 8.3 mg/dL (8.5-10.1); CO2 29 mmol/L (21-32); GLUCOSE,RANDOM 86 mg/dL (74-106)
[2020-08-09 11:44] LABS: CREATININE 5.3 mg/dL (0.55-1.3); PHOSPHOROUS 6.2 mg/dL (2.5-4.9)
[2020-08-09 11:45] LABS: SGOT/AST 50 U/L (15-37)
[2020-08-09 11:46] LABS: BILIRUBIN,TOTAL 0.8 mg/dL (0.2-1); TOT PROT 5.5 g/dl (6.4-8.2)
[2020-08-09 11:47] LABS: ALK PHOS 319 U/L (45-117); SGPT/ALT < 6 U/L (13-61)
[2020-08-09 12:46] VITALS: BMI 26.3
[2020-08-09 13:49] VITALS: BP 134/76; PULSE 81
[2020-08-09] MEDS ORDERED: CEFAZOLIN 2 GM/D5W 2 GM/50 ML ML IVPB ONE (15:27)
== END 2020-08-09 21:21 | DRG 977 ==
LOC: JER 15:31 → JERBED 18:32 → J6S 07-25 23:42 → J4W 08-03 16:58
PROVIDERS: ADMIT Internal Medicine; ATTEND Internal Medicine
PROC: 0S9C3ZX Drainage of Right Knee Joint, Percutaneous Approach, Diagnostic (ICD-10-PCS; 2020-07-26)
PROC: 0SBC4ZZ Excision of Right Knee Joint, Percutaneous Endoscopic Approach (ICD-10-PCS; principal; 2020-07-27)
PROC: 0S9C40Z Drainage of Right Knee Joint with Drainage Device, Percutaneous Endoscopic Approach (ICD-10-PCS; 2020-07-27)
PROC: 30233N1 Transfusion of Nonautologous Red Blood Cells into Peripheral Vein, Percutaneous Approach (ICD-10-PCS; 2020-08-03)
PROC: 0DJ08ZZ Inspection of Upper Intestinal Tract, Via Natural or Artificial Opening Endoscopic (ICD-10-PCS; 2020-08-05)
DX: M00.061 Staphylococcal arthritis, right knee (principal); B20 Human immunodeficiency virus [HIV] disease; N18.6 End stage renal disease; G93.41 Metabolic encephalopathy; I21.4 Non-ST elevation (NSTEMI) myocardial infarction; G92 Toxic encephalopathy; R78.81 Bacteremia; I24.8 Other forms of acute ischemic heart disease; K92.1 Melena; D62 Acute posthemorrhagic anemia; B02.9 Zoster without complications; B95.61 Methicillin susceptible Staphylococcus aureus infection as the cause of diseases classified elsewhere; I83.005 Varicose veins of unspecified lower extremity with ulcer other part of foot; L97.519 Non-pressure chronic ulcer of other part of right foot with unspecified severity; B95.8 Unspecified staphylococcus as the cause of diseases classified elsewhere; I25.10 Atherosclerotic heart disease of native coronary artery without angina pectoris; Z95.5 Presence of coronary angioplasty implant and graft; I10 Essential (primary) hypertension; I95.9 Hypotension, unspecified; M25.461 Effusion, right knee; E78.5 Hyperlipidemia, unspecified
CPT/HCPCS: 36415; 36430; 36600; 70450-TC; 71045-TC-FY; 71250-TC; 73560-TC-RT-FY; 74176-TC; 80053; 80061; 82140; 82272; 82550; 82553; 82803; 82962; 83036; 83605; 83615; 83721; 83735; 83880; 84100; 84439; 84443; 84479; 84481; 84484; 84550; 85025; 85027; 85610; 85651; 85730; 86140; 86359; 86360; 86618; 86704; 86706; 86707; 86708; 86709; 86780; 86803; 86850; 86900; 86901; 86922; 87040; 87070; 87075; 87186; 87205; 87340; 88304-TC; 89060; 93005; 93010; 93306-TC; 94760; 97116-GP; 97162-GP; 99285-25; C9803; G0480; J0131; P9058; Q5106; U0003

== ENCOUNTER 2020-08-11 18:54 | Inpatient (IN) | payer OTHER ==
[2020-08-11] MEDS ORDERED: SODIUM CHLORIDE 1,769 ML IV ONE (20:18)
[2020-08-11 22:56] LABS: BASO % 2.5 % (0-2.0); EOS % 3.4 % (0-4.5); HEMATOCRIT 28.1 % (35.4-49); HEMOGLOBIN 9.3 GM/dL (11.7-16.9); LYMPH % 16.9 % (8-40); MCH 30.4 pg (25.7-33.7); MEAN CELL VOLUME 92.4 fl (80-96); MONO % 9.1 % (3.8-10.2); NEUT % 68.1 % (42.8-82.8); PLATELET COUNT 202 K/MM3 (134-434); RBC 3.04 M/mm3 (4.00-5.60); RDW 18.5 % (11.9-15.9); WHITE BLOOD COUNT 5.1 K/mm3 (4.0-10.0)
[2020-08-11 22:59] LABS: CHLORIDE 93 mmol/L (98-107); SODIUM 133 mmol/L (136-145)
[2020-08-11 23:01] LABS: ALBUMIN 2.1 g/dl (3.4-5.0); ANION GAP 11 MMOL/L (8-16); CALCIUM 8.2 mg/dL (8.5-10.1); CO2 29 mmol/L (21-32)
[2020-08-11 23:02] LABS: GLUCOSE,RANDOM 62 mg/dL (74-106)
[2020-08-11 23:04] LABS: INR 1.18 (0.83-1.09); PROTHROMBIN TIME (PATIENT) 14.2 SEC (9.7-13.0); SGOT/AST 60 U/L (15-37); SGPT/ALT < 6 U/L (13-61)
[2020-08-11 23:05] LABS: BILIRUBIN,TOTAL 0.8 mg/dL (0.2-1); CREATININE 5.9 mg/dL (0.55-1.3); TOT PROT 6.2 g/dl (6.4-8.2)
[2020-08-11 23:06] LABS: ACTIVATED PTT 34.7 SECONDS (25.2-36.5); ALK PHOS 331 U/L (45-117)
[2020-08-11] MEDS ORDERED: HALOPERIDOL DECANOATE 100 MG/ML IM ONE (23:22)
[2020-08-11] MEDS ORDERED: LORazepam 2 MG/ML SDV VIAL IM ONE (23:22)
[2020-08-11] MEDS ORDERED: SODIUM CHLORIDE 0.9% 500 ML INFUS.BAG IV ONE (23:28)
[2020-08-11] MEDS ORDERED: HALOPERIDOL LACTATE 5 MG/ML ONE (23:39)
[2020-08-12] MEDS ORDERED: diphenhydrAMINE HCL 25 MG CAPSULE (FP) PO PRN (00:23)
[2020-08-12 07:30] LABS: HEMATOCRIT 28.9 % (35.4-49); HEMOGLOBIN 9.6 GM/dL (11.7-16.9); MCH 30.7 pg (25.7-33.7); MCHC 33.4 g/dl (32.0-35.9); MEAN CELL VOLUME 91.9 fl (80-96); MEAN PLT VOLUME 7.5 fl (7.5-11.1); PLATELET COUNT 214 K/MM3 (134-434); RBC 3.14 M/mm3 (4.00-5.60); RDW 19.1 % (11.9-15.9); WHITE BLOOD COUNT 4.3 K/mm3 (4.0-10.0)
[2020-08-12 07:45] LABS: CHLORIDE 94 mmol/L (98-107); SODIUM 132 mmol/L (136-145)
[2020-08-12 07:46] LABS: ALBUMIN 2.1 g/dl (3.4-5.0); ANION GAP 10 MMOL/L (8-16); BLOOD UREA NITROGEN 59.6 mg/dL (7-18); CALCIUM 8.2 mg/dL (8.5-10.1); CO2 28 mmol/L (21-32); GLUCOSE,RANDOM 58 mg/dL (74-106); MAGNESIUM 2.1 mg/dL (1.8-2.4)
[2020-08-12 07:50] LABS: CREATININE 6.3 mg/dL (0.55-1.3); PHOSPHOROUS 5.6 mg/dL (2.5-4.9); SGOT/AST 53 U/L (15-37); SGPT/ALT < 6 U/L (13-61)
[2020-08-12 07:52] LABS: BILIRUBIN,TOTAL 0.8 mg/dL (0.2-1); TOT PROT 6.2 g/dl (6.4-8.2)
[2020-08-12 07:53] LABS: ALK PHOS 332 U/L (45-117)
[2020-08-12] MEDS: ATOVAQUONE 750 MG/5 ML (UNIT-DOSE PACKAGING) PO SCH (08:24)
[2020-08-12] MEDS ORDERED: diphenhydrAMINE HCL 25 MG CAPSULE (FP) PO ONE (10:28)
[2020-08-12] MEDS ORDERED: PANTOPRAZOLE 40 MG TABLET ONE ×2 (10:33→22:27)
[2020-08-12] MEDS ORDERED: CEFAZOLIN 1 GM/D5W 1 GM/50 ML BAG ONE (10:34)
[2020-08-12] MEDS: SEVELAMER CARBONATE 800 MG TAB (FP) PO SCH ×3 (10:45→18:28)
[2020-08-12] MEDS: CINACALCET HCL 30 MG TAB (FP) PO SCH (10:46)
[2020-08-12] MEDS: CLOPIDOGREL BISULFATE 75 MG TABLET (FP) PO SCH (10:46)
[2020-08-12] MEDS: CEFAZOLIN 1 GM/D5W 1 GM/50 ML BAG IVPB SCH (10:46)
[2020-08-12] MEDS: RALTEGRAVIR POTASSIUM 400 MG TAB PO SCH ×2 (10:46→22:26)
[2020-08-12] MEDS: PANTOPRAZOLE 40 MG TABLET PO SCH ×2 (10:46→22:26)
[2020-08-12] MEDS: ABACAVIR SULFATE 300 MG TABLET PO SCH ×2 (10:46→22:26)
[2020-08-12] MEDS: lamiVUDine 10 MG/1 ML BULK BOTTLE PO SCH (10:46)
[2020-08-12] MEDS ORDERED: CLOPIDOGREL BISULFATE 75 MG TABLET (FP) ONE (10:47)
[2020-08-12] MEDS ORDERED: SODIUM CHLORIDE 250 ML IV PRN (12:44)
[2020-08-12] MEDS: COLLAGENASE CLOSTRIDIUM HIST. 30 GRAMS TUBE TP SCH (13:31)
[2020-08-12] MEDS ORDERED: EPOETIN ALFA-EPBX 4,000 UNIT/ML VIAL IVPUSH ONE (15:00)
[2020-08-12 19:14] LABS: EPI CELLS 3 /uL (0-25.1); HYALINE CASTS 0 /uL (0-3.1); PH,URINE >= 9.0 (5.0-8.0); URINE APPEARANCE CLOUDY; URINE BACTERIA 5 /uL (0-1359); URINE BILIRUBIN NEGATIVE (NEGATIVE); URINE COLOR YELLOW; URINE GLUCOSE (UA) NEGATIVE (NEGATIVE); URINE KETONE NEGATIVE (NEGATIVE); URINE LEUK ESTERASE NEGATIVE (NEGATIVE); URINE NITRITE NEGATIVE (NEGATIVE); URINE PROTEIN 2+ (NEGATIVE); URINE RBC 5 /uL (0-23.9); URINE UROBILINOGEN 0.2 mg/dL (0.2-1.0); URINE WBC 3 /uL (0-25.8)
[2020-08-12] MEDS: ATORVASTATIN CA 40 MG TABLET (FP) PO SCH (22:26)
[2020-08-12] MEDS ORDERED: ATORVASTATIN CA 40 MG TABLET (FP) ONE (22:27)
[2020-08-13] MEDS ORDERED: HALOPERIDOL LACTATE 5 MG/ML IM ONE (00:23)
[2020-08-13] MEDS ORDERED: HALOPERIDOL LACTATE 5 MG/ML ONE (00:24)
[2020-08-13] MEDS ORDERED: ACETAMINOPHEN 325 MG TABLET (FP) ONE (05:48)
[2020-08-13] MEDS ORDERED: ACETAMINOPHEN 325 MG TABLET (FP) PO ONE (05:48)
[2020-08-13] MEDS ORDERED: ceFAZolin SODIUM 1 GM VIAL IVPB SCH (10:00)
[2020-08-13] MEDS ORDERED: COLLAGENASE CLOSTRIDIUM HIST. 30 GRAMS TUBE TP SCH (10:10)
[2020-08-13] MEDS ORDERED: PT OWN MED DRAWER 7, Y5N ONE ×2 (10:19→22:00)
[2020-08-13] MEDS: CLOPIDOGREL BISULFATE 75 MG TABLET (FP) PO SCH (12:10)
[2020-08-13] MEDS: PANTOPRAZOLE 40 MG TABLET PO SCH ×2 (12:10→22:45)
[2020-08-13] MEDS: SEVELAMER CARBONATE 800 MG TAB (FP) PO SCH ×3 (12:10→18:29)
[2020-08-13] MEDS: CINACALCET HCL 30 MG TAB (FP) PO SCH (12:10)
[2020-08-13] MEDS: ATOVAQUONE 750 MG/5 ML (UNIT-DOSE PACKAGING) PO SCH (12:11)
[2020-08-13] MEDS: lamiVUDine 10 MG/1 ML BULK BOTTLE PO SCH (12:11)
[2020-08-13] MEDS: ABACAVIR SULFATE 300 MG TABLET PO SCH (12:11)
[2020-08-13] MEDS: RALTEGRAVIR POTASSIUM 400 MG TAB PO SCH (12:12)
[2020-08-13] MEDS: CEFAZOLIN 1 GM/D5W 1 GM/50 ML BAG IVPB SCH (12:35)
[2020-08-13] MEDS: COLLAGENASE CLOSTRIDIUM HIST. 30 GRAMS TUBE TP SCH (12:36)
[2020-08-13 16:25] VITALS: BMI 25.7
[2020-08-13] MEDS: OLANZapine 5 MG TABLET PO SCH (22:45)
[2020-08-13] MEDS: ATORVASTATIN CA 40 MG TABLET (FP) PO SCH (22:45)
[2020-08-14] MEDS: RALTEGRAVIR POTASSIUM 400 MG TAB PO SCH ×3 (00:06→22:09)
[2020-08-14] MEDS: ABACAVIR SULFATE 300 MG TABLET PO SCH ×3 (00:06→22:09)
[2020-08-14 08:28] LABS: BASO % 2.2 % (0-2.0); EOS % 6.3 % (0-4.5); HEMATOCRIT 29.9 % (35.4-49); HEMOGLOBIN 9.6 GM/dL (11.7-16.9); LYMPH % 18.8 % (8-40); MCH 30.5 pg (25.7-33.7); MCHC 32.2 g/dl (32.0-35.9); MEAN CELL VOLUME 94.7 fl (80-96); MEAN PLT VOLUME 7.3 fl (7.5-11.1); NEUT % 58.7 % (42.8-82.8); PLATELET COUNT 197 K/MM3 (134-434); RBC 3.16 M/mm3 (4.00-5.60); RDW 19.5 % (11.9-15.9); WHITE BLOOD COUNT 4.6 K/mm3 (4.0-10.0)
[2020-08-14] MEDS: SEVELAMER CARBONATE 800 MG TAB (FP) PO SCH ×3 (09:20→17:07)
[2020-08-14] MEDS: CEFAZOLIN 1 GM/D5W 1 GM/50 ML BAG IVPB SCH (10:41)
[2020-08-14] MEDS: CLOPIDOGREL BISULFATE 75 MG TABLET (FP) PO SCH (11:07)
[2020-08-14] MEDS: CINACALCET HCL 30 MG TAB (FP) PO SCH (11:07)
[2020-08-14] MEDS: ATOVAQUONE 750 MG/5 ML (UNIT-DOSE PACKAGING) PO SCH (11:08)
[2020-08-14] MEDS: PANTOPRAZOLE 40 MG TABLET PO SCH ×2 (11:08→22:09)
[2020-08-14] MEDS: lamiVUDine 10 MG/1 ML BULK BOTTLE PO SCH (11:09)
[2020-08-14] MEDS: COLLAGENASE CLOSTRIDIUM HIST. 30 GRAMS TUBE TP SCH (11:09)
[2020-08-14] MEDS: OLANZapine 5 MG TABLET PO SCH ×2 (11:10→22:09)
[2020-08-14 11:41] LABS: BLOOD UREA NITROGEN 41.9 mg/dL (7-18); CALCIUM 8.1 mg/dL (8.5-10.1); CREATININE 5.7 mg/dL (0.55-1.3); PHOSPHOROUS 5.4 mg/dL (2.5-4.9); TOT PROT 6.1 g/dl (6.4-8.2)
[2020-08-14] MEDS: HEPARIN NA (PORCINE) 5,000 UNITS/ML 1ML VIAL SQ SCH ×2 (15:37→22:09)
[2020-08-14] MEDS: ATORVASTATIN CA 40 MG TABLET (FP) PO SCH (22:09)
[2020-08-14] MEDS ORDERED: diphenhydrAMINE HCL 25 MG CAPSULE (FP) PO ONE (23:43)
[2020-08-15 08:58] LABS: BASO % 2.6 % (0-2.0); EOS % 9.7 % (0-4.5); HEMATOCRIT 28.2 % (35.4-49); HEMOGLOBIN 9.3 GM/dL (11.7-16.9); LYMPH % 17.6 % (8-40); MCH 30.7 pg (25.7-33.7); MEAN PLT VOLUME 7.4 fl (7.5-11.1); MONO % 8.4 % (3.8-10.2); NEUT % 61.7 % (42.8-82.8); PLATELET COUNT 212 K/MM3 (134-434); RBC 3.03 M/mm3 (4.00-5.60); WHITE BLOOD COUNT 4.3 K/mm3 (4.0-10.0)
[2020-08-15] MEDS ORDERED: PT OWN MED DRAWER 7, Y5N ONE (09:07)
[2020-08-15 09:15] LABS: CHLORIDE 98 mmol/L (98-107); SODIUM 138 mmol/L (136-145)
[2020-08-15 09:17] LABS: CALCIUM 7.4 mg/dL (8.5-10.1)
[2020-08-15 09:18] LABS: ALBUMIN 2.1 g/dl (3.4-5.0); ANION GAP 8 MMOL/L (8-16); BLOOD UREA NITROGEN 50.5 mg/dL (7-18); CO2 31 mmol/L (21-32); GLUCOSE,RANDOM 59 mg/dL (74-106)
[2020-08-15 09:21] LABS: CREATININE 6.6 mg/dL (0.55-1.3); PHOSPHOROUS 5.5 mg/dL (2.5-4.9); SGOT/AST 33 U/L (15-37)
[2020-08-15 09:22] LABS: BILIRUBIN,TOTAL 0.9 mg/dL (0.2-1); TOT PROT 6.2 g/dl (6.4-8.2)
[2020-08-15 09:24] LABS: ALK PHOS 287 U/L (45-117)
[2020-08-15 09:25] LABS: SGPT/ALT < 6 U/L (13-61)
[2020-08-15] MEDS: ABACAVIR SULFATE 300 MG TABLET PO SCH (09:29)
[2020-08-15] MEDS: RALTEGRAVIR POTASSIUM 400 MG TAB PO SCH (09:29)
[2020-08-15] MEDS: PANTOPRAZOLE 40 MG TABLET PO SCH (09:30)
[2020-08-15] MEDS: ATOVAQUONE 750 MG/5 ML (UNIT-DOSE PACKAGING) PO SCH (09:30)
[2020-08-15] MEDS: lamiVUDine 10 MG/1 ML BULK BOTTLE PO SCH (09:30)
[2020-08-15] MEDS: SEVELAMER CARBONATE 800 MG TAB (FP) PO SCH ×3 (09:30→17:25)
[2020-08-15] MEDS: HEPARIN NA (PORCINE) 5,000 UNITS/ML 1ML VIAL SQ SCH (09:31)
[2020-08-15] MEDS: OLANZapine 5 MG TABLET PO SCH (09:31)
[2020-08-15] MEDS: CEFAZOLIN 1 GM/D5W 1 GM/50 ML BAG IVPB SCH ×2 (09:31→13:12)
[2020-08-15] MEDS: CINACALCET HCL 30 MG TAB (FP) PO SCH (09:31)
[2020-08-15] MEDS: CLOPIDOGREL BISULFATE 75 MG TABLET (FP) PO SCH (09:31)
[2020-08-15] MEDS ORDERED: CEFAZOLIN 2 GM/D5W 2 GM/50 ML ML IVPB ONE (10:08)
[2020-08-15] MEDS ORDERED: EPOETIN ALFA-EPBX 4,000 UNIT/ML VIAL IVPUSH ONE (13:15)
[2020-08-15] MEDS: COLLAGENASE CLOSTRIDIUM HIST. 30 GRAMS TUBE TP SCH (17:24)
[2020-08-15 20:43] VITALS: BP 119/59; PULSE 80; TEMP 97.4
== END 2020-08-15 20:02 | DRG 885 ==
LOC: JER 18:54 → JERBED 23:24 → J5S 08-13 06:42
PROVIDERS: ADMIT Hospitalist
PROC: 5A1D70Z Performance of Urinary Filtration, Intermittent, Less than 6 Hours Per Day (ICD-10-PCS; principal; 2020-08-15)
DX: F23 Brief psychotic disorder (principal); N18.6 End stage renal disease; G93.41 Metabolic encephalopathy; B20 Human immunodeficiency virus [HIV] disease; I24.8 Other forms of acute ischemic heart disease; I12.0 Hypertensive chronic kidney disease with stage 5 chronic kidney disease or end stage renal disease; L89.152 Pressure ulcer of sacral region, stage 2; I83.005 Varicose veins of unspecified lower extremity with ulcer other part of foot; L97.519 Non-pressure chronic ulcer of other part of right foot with unspecified severity; I73.9 Peripheral vascular disease, unspecified; I25.10 Atherosclerotic heart disease of native coronary artery without angina pectoris; Z95.5 Presence of coronary angioplasty implant and graft; Z99.2 Dependence on renal dialysis; R41.82 Altered mental status, unspecified; D64.9 Anemia, unspecified; F22 Delusional disorders
CPT/HCPCS: 36415; 70450-TC; 71045-TC-FY; 73630-TC-RT-FY; 80053; 81003; 82272; 82962; 83605; 83735; 84100; 84484; 85025; 85027; 85610; 85730; 86140; 87040; 87086; 87186; 87899; 93005; 93010; 99285-25; C9803; J1644; Q5106; U0003